=== PATIENT | male | born 1980 ===

== ENCOUNTER 2016-07-05 10:21 | Emergency (ER) | payer OTHER, SELFPAY ==
[2016-07-05] MEDS ORDERED: Sodium Chloride 0.9% 1,000 ML IV STA (10:45)
[2016-07-05] MEDS ORDERED: Iohexol 240 (50 ml) PO ONE (10:45)
[2016-07-05] MEDS ORDERED: HYDROmorphone 0.5 mg/0.5 ml ISec IVP STA ×2 (10:47→16:46)
[2016-07-05 10:53] VITALS: O2SAT 98; BMI 18.6
[2016-07-05] MEDS ORDERED: Iohexol 240 (50 ml) ONE (11:02)
[2016-07-05] MEDS ORDERED: HYDROmorphone 0.5 mg/0.5 ml ISec ONE ×2 (11:02→16:52)
[2016-07-05 11:08] LABS: ALB/GLOB RATIO 0.8 (1.0-2.1); ALKALINE PHOSPHATASE 953 U/L (38-126); ALT/SGPT 253 U/L (21-72); AST/SGOT 250 U/L (17-59); BILIRUBIN,TOTAL 2.6 mg/dl (0.2-1.3); BLOOD UREA NITROGEN 5 mg/dl (9-20); CALCIUM 9.2 mg/dL (8.4-10.2); CARBON DIOXIDE 21 mmol/L (22-30); CHLORIDE 101 mmol/L (98-107); GFR AFRICAN-AMERICAN > 60; GLUCOSE,RANDOM 115 mg/dL (75-110); LIPASE 234 U/L (23-300); SODIUM 135 mmol/l (132-148); TOTAL PROTEIN 9.1 G/DL (6.3-8.2)
[2016-07-05 11:18] LABS: BASO % 0.6 % (0.0-2.0); EOS # 0.1 K/uL (0.0-0.7); EOS % 1.9 % (0.0-4.0); HEMATOCRIT 28.9 % (35.0-51.0); LYMPH # 1.2 K/uL (1.0-4.3); LYMPH % 28.1 % (20.0-40.0); MEAN CELL VOLUME 84.1 fl (80.0-94.0); MEAN CORPUSCULAR HEMOGLOBIN 28.6 pg (27.0-31.0); MEAN PLATELET VOLUME 8.3 fl (7.2-11.7); MONO # 0.2 K/uL (0.0-0.8); MONO % 4.4 % (0.0-10.0); NEUT # 2.7 K/uL (1.8-7.0); RED CELL DISTRIBUTION WIDTH 15.8 % (11.5-14.5); WHITE BLOOD COUNT 4.1 K/uL (4.8-10.8)
[2016-07-05 11:21] LABS: POTASSIUM 2.8 MMOL/L (3.6-5.0)
--- NOTE | 2016-07-05 11:23 | ED PDOC ---
HPI: Abdomen Time Seen by Provider: 07/05/16 10:29 Chief Complaint (Nursing): Abdominal Pain Chief Complaint (Provider): Abdominal Pain History Per: Patient History/Exam Limitations: no limitations Onset/Duration Of Symptoms: Days (x5 days) Current Symptoms Are (Timing): Still Present Additional Complaint(s): 36 y/o male with a past medical history of liver cancer who presents to the emergency department with a complaint of diffused abdominal pain x5 days. Describes as an on and off pain. Denies shortness of breath, chest pain, diarrhea, vomiting, runny nose, cough, or changes with urination or bowel movements. Of note, patient had liver surgery about 1 year ago and a bilirubin drainage input 1 month ago. Currently in chemotherapy (last session was 06/29/2016) and Oxycodon for pain. Surgeon: Dr. Mario Irving MD ([facility]) Oncologist: Dr. Martin Rodgers MD PMD: Dr. Kain Coughlin MD Past Medical History Reviewed: Historical Data, Nursing Documentation, Vital Signs Vital Signs: Last Vital Signs Temp 97.3 F L 07/05/16 10:23 Pulse 93 H 07/05/16 10:23 Resp 16 07/05/16 10:23 BP 105/70 07/05/16 10:23 Pulse Ox 98 07/05/16 17:05 - Medical History PMH: Anemia, Gall Bladder Disease, Malignancy (cholangiocarcinoma) Denies: HIV, Chronic Kidney Disease Other PMH: Liver cancer - Surgical History Surgical History: Appendectomy, Cholecystectomy Other surgeries: Bilirubin drainage and liver surgery - Family History Family History: States: Unknown Family Hx - Social History Current smoker - smoking cessation education provided: No Alcohol: None Drugs: Denies - Home Medications Home Medications: Ambulatory Orders Medication Instructions Recorded oxyCODONE [oxyCODONE Immediate 5 mg PO Q6 PRN 04/19/16 Release Tab] - Allergies Allergies/Adverse Reactions: Allergies Allergy/AdvReac Type Severity Reaction Status Date / Time morphine Allergy SHORTNESS Verified 07/05/16 10:33 OF BREATH Review of Systems ROS Statement: Except As Marked, All Systems Reviewed And Found Negative ENT: Negative for: Nose Discharge Cardiovascular: Negative for: Chest Pain Respiratory: Negative for: Cough, Shortness of Breath Gastrointestinal: Positive for: Abdominal Pain (x5 days). Negative for: Vomiting, Diarrhea Genitourinary Male: Negative for: Dysuria, Frequency, Incontinence, Other ( abnormal bowel movements) Physical Exam - Reviewed Nursing Documentation Reviewed: Yes Vital Signs Reviewed: Yes - Physical Exam Appears: Positive for: Uncomfortable Head Exam: Positive for: ATRAUMATIC, NORMOCEPHALIC Skin: Positive for: Normal Color, Warm, Dry Eye Exam: Positive for: Normal appearance. Negative for: Conjunctival injection ENT: Positive for: Normal ENT Inspection. Negative for: Nasal Congestion, Pharyngeal Erythema Neck: Positive for: Normal, Supple Cardiovascular/Chest: Positive for: Regular Rate, Rhythm. Negative for: Edema, Murmur Respiratory: Positive for: Normal Breath Sounds. Negative for: Accessory Muscle Use, Respiratory Distress Gastrointestinal/Abdominal: Positive for: Soft, Tenderness (Diffused abdominal pain), Hernia (Indetified in the front of the stomach, non-reducible), Other ( Abdominal surgical scar noted) Back: Positive for: Normal Inspection. Negative for: L CVA Tenderness, R CVA Tenderness Extremity: Positive for: Normal ROM. Negative for: Tenderness, Pedal Edema Neurologic/Psych: Positive for: Alert, Oriented - Laboratory Results Result Diagrams: 07/05/16 10:50 07/05/16 10:50 Interpretation Of Abn Labs: 2.8 K - ECG ECG: Positive for: Interpreted By Me, Viewed By Me ECG Rhythm: Positive for: Sinus Rhythm, Nonspecific Changes O2 Sat by Pulse Oximetry: 98 (RA) Pulse Ox Interpretation: Normal - Radiology X-Ray: Read By Radiologist X-Ray Interpretation: No Acute Disease - Progress ED Course And Treament: 1500: S table. Pending surgery eval. 1640: Stable. AAOx3. Pain improved. Spoke with Dr. Soto about CT findings and he saw pt. Wants pt. to be transferred to [facility] where he got his care. Spoke with Mana, for Dr. Irving, surgeon for pt. Pt. will be accepted for transfer to [facility]. Pt. aware and agrees. Pt. to get cipro and flagyl. - Critical Care Total Time (In Min): 30 Documented Critical Care: Time excludes all time spent performint seperately billable procedures Medical Decision Making Medical Decision Making: Time: 10:29 Initial impression: Abdominal Pain Initial plan: --Abd Pelvis PO & IV Contrast CT --COMP Metabolic Panel --Lipase stat --Urine Dip --CBC w/ differential --Dilaudid 1 mg IVP --Sodium Chloride 1,000 ml IV 1,000 mls.hr --Iohexol 50 ml PO --Revaluation Time: 12:19 --Chest X-ray FINDINGS: LUNGS: Minor crowding is seen at the lung bases. No new focal infiltrate. Right Port-A -Cath is stable. PLEURA: No significant pleural effusion identified, no pneumothorax apparent. CARDIOVASCULAR: Normal. OSSEOUS STRUCTURES: No significant abnormalities. VISUALIZED UPPER ABDOMEN: Catheter is seen overlying the right upper abdomen. Surgical clips are seen in the right upper abdomen. OTHER FINDINGS: None. IMPRESSION: Minor bibasilar volume loss. Time: 15:08 --Abdomen/ Pelvis CT FINDINGS: LOWER THORAX: Mild subsegmental atelectasis is seen at the left lung base. No pleural effusion is seen. No pericardial effusion is noted. Minor atelectasis is seen at the right lung base. Visualized distal esophagus is unremarkable. LIVER: There appears to be interval improvement in previously identified multiple hepatic metastatic lesions. There appears to be decreased number and size of lesions. There is a new hepatic infusion catheter identified. Catheter extends to the anterior aspect of the liver and towards the fernando hepatis region. There appears to been resection of the left lobe of the liver with numerous surgical clips adjacent to the medial aspect of the liver. GALLBLADDER AND BILE DUCTS: Gallbladder appears to have been previously removed. Common bile duct is normal in size. Mild residual intrahepatic biliary dilatation is noted. PANCREAS: Pancreas is grossly normal in outline without evidence of mass or peripancreatic inflammatory change. SPLEEN: Unchanged and enlarged. ADRENALS: No adrenal masses. KIDNEYS AND URETERS: Mild bilateral renal pelvocaliceal prominence an ureteral prominence which may be related to a distended urinary bladder. No calculi or significant perinephric change. This represents interval change from prior study. VASCULATURE: Patent abdominal vessels. However IVC and portions of the mesenteric vessels are limited due to timing of contrast bolus. BOWEL: There is abnormal appearance of the right colon when compared to the prior study. There appears to be some colonic wall thickening involving the right colon with moderate residual fecal material identified. The colon is less distended than on prior study. Mild amount of colitis could not be excluded. Suture material seen in the region of the cecum. There is also fecalization and some dilatation of the terminal ileum and some mild thickening in this region. There are new areas of dilated and contrast filled proximal small bowel and mid small bowel. There is however the suggestion of some under opacified and decreased caliber small bowel loops in the right side of the abdomen. Partial small bowel obstruction is suspected. Etiology is more than likely related to adhesions. R some other adjacent anterior thickened small bowel loops without contrast seen in the anterior abdomen. Additional enteritis in this area is not excluded. No appreciable portal venous air or pneumatosis is clearly seen. APPENDIX: Not well appreciated and more than likely removed. PERITONEUM: Mild thickening of the mesenteric in a number of small scattered mesenteric lymph nodes. LYMPH NODES: No new retroperitoneal lymph nodes appreciated. A few small scattered very celiac and fernando hepatis lymph nodes are noted. BLADDER: Distended. REPRODUCTIVE: Unremarkable. BONES: There appear to be a number of new sclerotic lesions in the spine and sacrum from prior study consistent with new areas of bony metastatic disease. No compression fractures noted. A few smaller scattered sclerotic lesions are seen in the hips. OTHER FINDINGS: There appears to be new anterior abdominal wall dehiscence or hernia with some bowel loops extending beneath this area. IMPRESSION: Status post liver lobe resection. Interval placement of a hepatic infusion catheter with decreased liver metastasis. New areas of small bowel dilatation in the right abdomen with a number of on opacified bowel loops appreciated. Findings suggest at least partial small bowel obstruction. Etiology would more than likely be adhesions. A small underlying intussusception in the area of under opacified and opacified bowel loops cannot fully be excluded but is considered less likely. Nonspecific thickening of the right colon suggesting mild colitis. No evidence of free intraperitoneal air. No evidence of portal venous air or pneumatosis. Distended urinary bladder with mild pelvocaliceal dilatation. Progression of bony metastatic disease. Scribe Attestation: Documented by Anne Hodgson, acting as a scribe for Shen Alcala MD. Provider Scribe Attestation: All medical record entries made by the Scribe were at my direction and personally dictated by me. I have reviewed the chart and agree that the record accurately reflects my personal performance of the history, physical exam, medical decision making, and the department course for this patient. I have also personally directed, reviewed, and agree with the discharge instructions and disposition. Disposition - Clinical Impression Clinical Impression: Partial bowel obstruction, Colitis, Abdominal pain, Hypokalemia - Patient ED Disposition Is Patient to be Admitted: Yes Counseled Patient/Family Regarding: Studies Performed, Diagnosis - Disposition Disposition: Other Institution Disposition Time: 16:15 Condition: SERIOUS - POA Present On Arrival: None
[2016-07-05] MEDS ORDERED: Potassium Chloride 10 mEq 100 ML IVPB ONE ×3 (11:56→15:03)
[2016-07-05] MEDS: Potassium CL 10mEq/100ml 100 ML IVPB SCH ×4 (12:03→16:42)
--- NOTE | 2016-07-05 12:20 | RAD ---
HISTORY: pain COMPARISON: 04/19/2016 FINDINGS: LUNGS: Minor crowding is seen at the lung bases. No new focal infiltrate. Right Port-A-Cath is stable. PLEURA: No significant pleural effusion identified, no pneumothorax apparent. CARDIOVASCULAR: Normal. OSSEOUS STRUCTURES: No significant abnormalities. VISUALIZED UPPER ABDOMEN: Catheter is seen overlying the right upper abdomen. Surgical clips are seen in the right upper abdomen. OTHER FINDINGS: None. IMPRESSION: Minor bibasilar volume loss.
[2016-07-05] MEDS ORDERED: Iohexol 300 100 ML IJ ONE (13:42)
--- NOTE | 2016-07-05 15:10 | CT ---
PROCEDURE: CT Abdomen and Pelvis with contrast HISTORY: abd pain COMPARISON: 04/19/2016 TECHNIQUE: Contrast dose: 100 cc Radiation dose: Total exam DLP = 406 mGy-cm. FINDINGS: LOWER THORAX: Mild subsegmental atelectasis is seen at the left lung base. No pleural effusion is seen. No pericardial effusion is noted. Minor atelectasis is seen at the right lung base. Visualized distal esophagus is unremarkable. LIVER: There appears to be interval improvement in previously identified multiple hepatic metastatic lesions. There appears to be decreased number and size of lesions. There is a new hepatic infusion catheter identified. Catheter extends to the anterior aspect of the liver and towards the fernando hepatis region. There appears to been resection of the left lobe of the liver with numerous surgical clips adjacent to the medial aspect of the liver. GALLBLADDER AND BILE DUCTS: Gallbladder appears to have been previously removed. Common bile duct is normal in size. Mild residual intrahepatic biliary dilatation is noted. PANCREAS: Pancreas is grossly normal in outline without evidence of mass or peripancreatic inflammatory change. SPLEEN: Unchanged and enlarged. ADRENALS: No adrenal masses. KIDNEYS AND URETERS: Mild bilateral renal pelvocaliceal prominence an ureteral prominence which may be related to a distended urinary bladder. No calculi or significant perinephric change. This represents interval change from prior study. VASCULATURE: Patent abdominal vessels. However IVC and portions of the mesenteric vessels are limited due to timing of contrast bolus. BOWEL: There is abnormal appearance of the right colon when compared to the prior study. There appears to be some colonic wall thickening involving the right colon with moderate residual fecal material identified. The colon is less distended than on prior study. Mild amount of colitis could not be excluded. Suture material seen in the region of the cecum. There is also fecalization and some dilatation of the terminal ileum and some mild thickening in this region. There are new areas of dilated and contrast filled proximal small bowel and mid small bowel. There is however the suggestion of some under opacified and decreased caliber small bowel loops in the right side of the abdomen. Partial small bowel obstruction is suspected. Etiology is more than likely related to adhesions. R some other adjacent anterior thickened small bowel loops without contrast seen in the anterior abdomen. Additional enteritis in this area is not excluded. No appreciable portal venous air or pneumatosis is clearly seen. APPENDIX: Not well appreciated and more than likely removed. PERITONEUM: Mild thickening of the mesenteric in a number of small scattered mesenteric lymph nodes. LYMPH NODES: No new retroperitoneal lymph nodes appreciated. A few small scattered very celiac and fernando hepatis lymph nodes are noted. BLADDER: Distended. REPRODUCTIVE: Unremarkable. BONES: There appear to be a number of new sclerotic lesions in the spine and sacrum from prior study consistent with new areas of bony metastatic disease. No compression fractures noted. A few smaller scattered sclerotic lesions are seen in the hips. OTHER FINDINGS: There appears to be new anterior abdominal wall dehiscence or hernia with some bowel loops extending beneath this area. IMPRESSION: Status post liver lobe resection. Interval placement of a hepatic infusion catheter with decreased liver metastasis. New areas of small bowel dilatation in the right abdomen with a number of on opacified bowel loops appreciated. Findings suggest at least partial small bowel obstruction. Etiology would more than likely be adhesions. A small underlying intussusception in the area of under opacified and opacified bowel loops cannot fully be excluded but is considered less likely. Nonspecific thickening of the right colon suggesting mild colitis. No evidence of free intraperitoneal air. No evidence of portal venous air or pneumatosis. Distended urinary bladder with mild pelvocaliceal dilatation. Progression of bony metastatic disease.
[2016-07-05] MEDS ORDERED: Ciprofloxacin 400mg/200ml D5W 200 ML IV STA (16:01)
[2016-07-05] MEDS ORDERED: metroNIDAZOLE 500mg/100ml NS 100 ML IV STA (16:01)
[2016-07-05] MEDS ORDERED: Dextrose 5%-0.9% NS 100 ML IV SCH (17:30)
[2016-07-05 19:36] VITALS: BP 105/67; PULSE 87; RESP 18; TEMP 98.3
--- NOTE | 2016-07-05 20:08 | CP.PCM.CON ---
<Anatoliy Rodriguez - Last Filed: 07/05/16 19:54> History of Present Illness - History of Present Illness History of Present Illness: General Surgery Consult 36M presents to ER C/O diffuse abdominal pain increasing x5 days. Pain can be off and on. Currently had received pain meds so pain was controlled. Denies F/C , SOB, N/V/D chest pain, dysuria. His liver surgery ~1 year ago and a bilirubin drain placed 1 month ago. Currently in chemo (last was 06/29/2016). PMH: Cholangiocarcinoma, metastatic. S/P Surgery, receiving chemo at [facility], Anemia PSH: Liver/bile duct resection at [facility], appendectomy SH: All: morphine Meds: See MAR Review of Systems - Review of Systems All systems: reviewed and no additional remarkable complaints except (as per HPI ) Past Patient History - Infectious Disease Hx of Infectious Diseases: None - Tetanus Immunizations Tetanus Immunization: Unknown - Past Medical History & Family History Past Medical History?: Yes - Past Social History Alcohol: None Drugs: Denies - CARDIAC Hx Cardiac Disorders: No - PULMONARY Hx Respiratory Disorders: No - NEUROLOGICAL Hx Neurological Disorder: No - HEENT Hx HEENT Problems: No - RENAL Hx Chronic Kidney Disease: No - ENDOCRINE/METABOLIC Hx Endocrine Disorders: No - HEMATOLOGICAL/ONCOLOGICAL Hx Anemia: Yes Hx Human Immunodeficiency Virus (HIV): No - INTEGUMENTARY Hx Dermatological Problems: No - MUSCULOSKELETAL/RHEUMATOLOGICAL Hx Musculoskeletal Disorders: No Hx Falls: No - GASTROINTESTINAL Hx Gall Bladder Disease: Yes - GENITOURINARY/GYNECOLOGICAL Hx Genitourinary Disorders: No - PSYCHIATRIC Hx Psychophysiologic Disorder: No Hx Substance Use: No - SURGICAL HISTORY Hx Appendectomy: Yes Hx Cholecystectomy: Yes - ANESTHESIA Hx Anesthesia: Yes Hx Anesthesia Reactions: No Meds Allergies/Adverse Reactions: Allergies Allergy/AdvReac Type Severity Reaction Status Date / Time morphine Allergy SHORTNESS Verified 07/05/16 10:33 OF BREATH - Medications Medications: Current Medications Dextrose/Sodium Chloride (Dextrose 5%-0.9% Ns 500 Ml) 100 mls @ 100 mls/hr IV .Q1H [facility] Last Admin: 07/05/16 17:46 Dose: 100 mls/hr Physical Exam - Constitutional Appears: No Acute Distress, Chronically Ill - Head Exam Head Exam: ATRAUMATIC, NORMOCEPHALIC - Eye Exam Eye Exam: EOMI, Scleral icterus - ENT Exam ENT Exam: Mucous Membranes Moist Additional comments: trachea midline - Neck Exam Neck exam: Positive for: Full Rom - Respiratory Exam Respiratory Exam: NORMAL BREATHING PATTERN. absent: Respiratory Distress - Cardiovascular Exam Cardiovascular Exam: RRR, +S1, +S2 - GI/Abdominal Exam GI & Abdominal Exam: Guarding (mild), Soft, Tenderness (generalized). absent: Distended, Firm, Rebound, Rigid - Extremities Exam Extremities exam: Negative for: calf tenderness, pedal edema - Neurological Exam Neurological exam: Alert, Oriented x3 - Psychiatric Exam Psychiatric exam: Normal Affect, Normal Mood - Skin Skin Exam: Dry, Warm Additional comments: jaundice Results - Vital Signs Recent Vital Signs: Last Vital Signs Temp 98.3 F 07/05/16 18:30 Pulse 87 07/05/16 18:30 Resp 18 07/05/16 18:30 BP 105/67 07/05/16 18:30 Pulse Ox 98 07/05/16 18:30 - Labs Result Diagrams: 07/05/16 10:50 07/05/16 10:50 Labs: Laboratory Results - last 24 hr 07/05/16 10:50 WBC 4.1 L RBC 3.44 L Hgb 9.8 L Hct 28.9 L MCV 84.1 D MCH 28.6 MCHC 34.0 RDW 15.8 H Plt Count 177 MPV 8.3 Neut % (Auto) 65.0 Lymph % (Auto) 28.1 [place] % (Auto) 4.4 Eos % (Auto) 1.9 Baso % (Auto) 0.6 Neut # 2.7 Lymph # 1.2 [place] # 0.2 Eos # 0.1 Baso # 0.0 Sodium 135 Potassium 2.8 L Chloride 101 Carbon Dioxide 21 L Anion Gap 16 BUN 5 L Creatinine 0.4 L Est GFR ( Amer) > 60 Est GFR (Non-Af Amer) > 60 Random Glucose 115 H Calcium 9.2 Total Bilirubin 2.6 H AST 250 H ALT 253 H D Alkaline Phosphatase 953 H D Total Protein 9.1 H Albumin 3.9 Globulin 5.2 H Albumin/Globulin Ratio 0.8 L Lipase 234 - Imaging and Cardiology CT scan - abdomen Status: Image reviewed by me, Report reviewed by me Assessment & Plan - Assessment and Plan (Free Text) Assessment: 36M with neutropenic colitis and pSBO likely 2/2 adhesions Plan: Recommend transfer to [facility] for care from his specialists D/W Dr. Jody Rodriguez PGY3 <Reynaldo Vera - Last Filed: 07/05/16 21:40> Meds - Medications Medications: Current Medications Dextrose/Sodium Chloride (Dextrose 5%-0.9% Ns 500 Ml) 100 mls @ 100 mls/hr IV .Q1H [facility] Last Admin: 07/05/16 17:46 Dose: 100 mls/hr Results - Vital Signs Recent Vital Signs: Last Vital Signs Temp 98.3 F 07/05/16 18:30 Pulse 87 07/05/16 18:30 Resp 18 07/05/16 18:30 BP 105/67 07/05/16 18:30 Pulse Ox 98 07/05/16 18:30 - Labs Result Diagrams: 07/05/16 10:50 07/05/16 10:50 Labs: Laboratory Results - last 24 hr 07/05/16 10:50 WBC 4.1 L RBC 3.44 L Hgb 9.8 L Hct 28.9 L MCV 84.1 D MCH 28.6 MCHC 34.0 RDW 15.8 H Plt Count 177 MPV 8.3 Neut % (Auto) 65.0 Lymph % (Auto) 28.1 [place] % (Auto) 4.4 Eos % (Auto) 1.9 Baso % (Auto) 0.6 Neut # 2.7 Lymph # 1.2 [place] # 0.2 Eos # 0.1 Baso # 0.0 Sodium 135 Potassium 2.8 L Chloride 101 Carbon Dioxide 21 L Anion Gap 16 BUN 5 L Creatinine 0.4 L Est GFR ( Amer) > 60 Est GFR (Non-Af Amer) > 60 Random Glucose 115 H Calcium 9.2 Total Bilirubin 2.6 H AST 250 H ALT 253 H D Alkaline Phosphatase 953 H D Total Protein 9.1 H Albumin 3.9 Globulin 5.2 H Albumin/Globulin Ratio 0.8 L Lipase 234 Attending/Attestation - Attestation I have personally seen and examined this patient.: Yes I have fully participated in the care of the patient.: Yes I have reviewed all pertinent clinical information: Yes Notes (Text): 07/05/16 21:39 Pt was seen and examined at bedside on 07/05/16 Agree with above note and assessment Pt with PSBO and Colitis CT scan reviewed NG to LIS, NPO, IVG Transfer pt to [facility] Plan d/w pt in detail Risk and benefit explained in detail
--- NOTE | 2016-07-06 08:07 | CARD ---
APPROVED REPORT EKG Measurement Heart [id number] <Conclusion> Normal sinus rhythm Prolonged QT Abnormal ECG
== END 2016-07-05 21:00 | disposition short-term general hospital (02) ==
LOC: H.ER 10:21
DX: K56.69 Other intestinal obstruction (principal); K52.9 Noninfective gastroenteritis and colitis, unspecified; E87.6 Hypokalemia; C22.1 Intrahepatic bile duct carcinoma; C78.7 Secondary malignant neoplasm of liver and intrahepatic bile duct

== ENCOUNTER 2016-12-11 13:36 | Emergency (ER) | payer MEDICAID, OTHER ==
[2016-12-11 13:37] VITALS: BMI 21.6
[2016-12-11 13:39] VITALS: PULSE 102; RESP 18; TEMP 97.9; O2SAT 100
[2016-12-11] MEDS ORDERED: Iohexol 240 (50 ml) PO ONE (13:56)
[2016-12-11] MEDS ORDERED: Sodium Chloride 0.9% 1,000 ML IV SCH (14:00)
[2016-12-11] MEDS ORDERED: HYDROmorphone 0.5 mg/0.5 ml ISec IVP STA (14:07)
--- NOTE | 2016-12-11 14:29 | RAD ---
HISTORY: routine COMPARISON: Comparison made with prior chest radiograph 07/05/2016. FINDINGS: LUNGS: Poor inspiration with low lung volumes, crowded bronchovascular markings and mild bibasilar atelectasis. No change right IJ MediPort tip in the SVC PLEURA: No significant pleural effusion identified, no pneumothorax apparent. CARDIOVASCULAR: Normal. OSSEOUS STRUCTURES: No significant abnormalities. VISUALIZED UPPER ABDOMEN: Pigtail catheter again seen overlying the right upper abdomen. OTHER FINDINGS: None. IMPRESSION: Poor inspiration with low lung volumes, crowded bronchovascular markings and mild bibasilar atelectasis
--- NOTE | 2016-12-11 14:38 | ED PDOC ---
HPI: Back Time Seen by Provider: 12/11/16 13:36 Chief Complaint (Nursing): Back Pain Chief Complaint (Provider): Back Pain History Per: Patient History/Exam Limitations: no limitations Current Symptoms Are (Timing): Still Present Additional Complaint(s): 36 y/o male with a past medical history of liver cancer who presents to the emergency department with a complaint of abdominal and back pain x2 days. States pain in increasing and took morphine without relief of symptoms at home. Reports last bowel movement was normal without complications. Denies urinary or rectal incontinence, frequency, dysuria, hematuria, vomiting, fever, or chills. Surgeon: Dr. Mario Irving MD ([facility]) Oncologist: Dr. Martin Rodgers MD and DNJ: Dr. Diaz PMD: Dr. Kain Coughlin MD Past Medical History Reviewed: Historical Data, Nursing Documentation, Vital Signs Vital Signs: Last Vital Signs Temp 97.9 F 12/11/16 13:38 Pulse 102 H 12/11/16 13:38 Resp 18 12/11/16 13:38 BP 105/60 12/11/16 13:38 Pulse Ox 100 12/11/16 13:38 - Medical History PMH: Anemia, Gall Bladder Disease, Malignancy (cholangiocarcinoma) Denies: HIV, Chronic Kidney Disease Other PMH: Liver cancer - Surgical History Surgical History: Appendectomy, Cholecystectomy - Family History Family History: States: Unknown Family Hx - Immunization History Hx Tetanus Toxoid Vaccination: No Hx Influenza Vaccination: No Hx Pneumococcal Vaccination: No - Home Medications Home Medications: Ambulatory Orders Medication Instructions Recorded oxyCODONE [oxyCODONE Immediate 5 mg PO Q6 PRN 04/19/16 Release Tab] - Allergies Allergies/Adverse Reactions: Allergies Allergy/AdvReac Type Severity Reaction Status Date / Time morphine Allergy SHORTNESS Verified 07/05/16 10:33 OF BREATH Review of Systems ROS Statement: Except As Marked, All Systems Reviewed And Found Negative Constitutional: Negative for: Fever, Chills Gastrointestinal: Positive for: Abdominal Pain. Negative for: Vomiting Genitourinary Male: Negative for: Dysuria, Frequency, Incontinence (rectal or urinary), Hematuria Musculoskeletal: Positive for: Back Pain Physical Exam - Reviewed Nursing Documentation Reviewed: Yes Vital Signs Reviewed: Yes - Physical Exam Appears: Positive for: Non-toxic, No Acute Distress Head Exam: Positive for: ATRAUMATIC, NORMAL INSPECTION, NORMOCEPHALIC Skin: Positive for: Normal Color, Warm, Dry Neck: Positive for: Normal, Supple Cardiovascular/Chest: Positive for: Regular Rate, Rhythm. Negative for: Murmur Respiratory: Positive for: Normal Breath Sounds. Negative for: Accessory Muscle Use, Respiratory Distress Gastrointestinal/Abdominal: Positive for: Bowel Sounds (Active bowel sounds), Soft (Surgical scar noted in mid abdomen), Tenderness (Tenderness mostly located in LUQ and LLQ region). Negative for: Normal Exam Extremity: Positive for: Normal ROM. Negative for: Pedal Edema Neurologic/Psych: Positive for: Alert, Oriented (x3) - Laboratory Results Result Diagrams: 12/11/16 15:16 12/11/16 15:16 - ECG ECG Rhythm: Positive for: Sinus Rhythm (NSR 76BPM; NO ECTOPY NO ACUTE CHANGES) O2 Sat by Pulse Oximetry: 100 (RA) Pulse Ox Interpretation: Normal - Progress ED Course And Treament: CT ABD/PELVIS IMPRESSION: Interval worsening of liver metastasis since the previous exam. Moderate small-bowel wall thickening seen at the upper abdomen. Findings suspicious for enteritis. The large bowel is not distended therefore cannot be evaluated. Interval appearance of destructive bony lesion at the left sacrum likely represent metastasis since the previous study. DILAUDID 0.5 MG IV X 1 DOSE ZOFRAN 4 MG IV X 1 DOSE NS 1 LITER 500 ML PER HOUR CIPRO 500MG IV X 1 DOSE FLAGLY 500 MG I VX 1 DOSE PREVIOUS BILIRUBIN NOTED 5.9. TODAY'S VALUE OF 2.9. Medical Decision Making Medical Decision Making: Time: 13:54 Initial impression: Back pain and abdominal pain Initial plan: --VBG --Abd Pelvis PO & IV Contrast CT --EKG --Alcohol Serum --CMP --Lipase --CBC w/ diff --Dilaudid 0.5 mg IVP --Iohexol 50 ml PO --Sodium Chloride 1L IV 500 mls/hr --Zofran 4 mg IVP --urine Culture --Urinalysis --Reevaluation --Old charts reviewed in course of treatment on 07-05-2016, pt noted to have diagnosis of Partial bowel obstruction, Colitis, Abdominal pain, & Hypokalemia. Time: 14:27 Chest x-ray FINDINGS: LUNGS: Poor inspiration with low lung volumes, crowded bronchovascular markings and mild bibasilar atelectasis. No change right IJ MediPort tip in the SVC PLEURA: No significant pleural effusion identified, no pneumothorax apparent. CARDIOVASCULAR: Normal. OSSEOUS STRUCTURES: No significant abnormalities. VISUALIZED UPPER ABDOMEN: Pigtail catheter again seen overlying the right upper abdomen. OTHER FINDINGS: None. IMPRESSION: Poor inspiration with low lung volumes, crowded bronchovascular markings and mild bibasilar atelectasis Scribe Attestation: Documented by Anne Hodgson, acting as a scribe for Jessee dow PA-C. Provider Scribe Attestation: All medical record entries made by the Scribe were at my direction and personally dictated by me. I have reviewed the chart and agree that the record accurately reflects my personal performance of the history, physical exam, medical decision making, and the department course for this patient. I have also personally directed, reviewed, and agree with the discharge instructions and disposition. Disposition - Clinical Impression Clinical Impression: Enteritis - Patient ED Disposition Is Patient to be Admitted: Transfer of Care - Disposition Disposition: Transfer of Care Disposition Time: 20:05 Condition: STABLE Forms: [employer] (Wallisian) Patient Signed Over To: Santa Taylor Handoff Comments: CIPRO/FLAGYL/RE-EVAL
[2016-12-11] MEDS ORDERED: Iohexol 240 (50 ml) ONE (14:56)
[2016-12-11] MEDS ORDERED: HYDROmorphone 0.5 mg/0.5 ml ISec ONE (14:57)
[2016-12-11 15:17] LABS: VENOUS BLOOD GAS BASE EXCESS 3.9 mmol/L (0.0-2.0); VENOUS BLOOD GAS PCO2 42 mmHg (40-60); VENOUS BLOOD PH 7.44 (7.32-7.43)
[2016-12-11 15:20] LABS: RBC URINE 1 /hpf (0-3); URINE BACTERIA RARE (<OCC); URINE BILIRUBIN NEGATIVE (NEGATIVE); URINE BLOOD NEGATIVE (NEGATIVE); URINE COLOR YELLOW (YELLOW); URINE GLUCOSE (UA) NEG (Normal); URINE KETONE NEGATIVE (NEGATIVE); URINE LEUKOCYTE ESTERASE NEG Leu/uL (Negative); URINE PROTEIN NEGATIVE (NEGATIVE); WBC URINE 2 /hpf (0-5)
[2016-12-11 15:23] LABS: BASO % 0.8 % (0.0-2.0); EOS # 0.1 K/uL (0.0-0.7); EOS % 2.6 % (0.0-4.0); HEMATOCRIT 32.6 % (35.0-51.0); LYMPH # 1.1 K/uL (1.0-4.3); LYMPH % 22.7 % (20.0-40.0); MEAN CELL VOLUME 85.8 fl (80.0-94.0); MEAN CORPUSCULAR HGB CONC 33.7 g/dL (33.0-37.0); MEAN PLATELET VOLUME 9.1 fl (7.2-11.7); MONO # 0.5 K/uL (0.0-0.8); MONO % 10.9 % (0.0-10.0); NEUT # 3.2 K/uL (1.8-7.0); NRBC % 0.1 % (0.0-0.0); RED CELL DISTRIBUTION WIDTH 14.1 % (11.5-14.5)
[2016-12-11 15:33] LABS: ALCOHOL SERUM < 10 mg/dl (0-10); ALKALINE PHOSPHATASE 562 U/L (38-126); ALT/SGPT 133 U/L (21-72); AST/SGOT 131 U/L (17-59); BILIRUBIN,TOTAL 2.9 mg/dl (0.2-1.3); BLOOD UREA NITROGEN 5 mg/dl (9-20); CALCIUM 9.2 mg/dL (8.4-10.2); CARBON DIOXIDE 25 mmol/L (22-30); CHLORIDE 104 mmol/L (98-107); GFR AFRICAN-AMERICAN > 60; GLUCOSE,RANDOM 103 mg/dL (75-110); LIPASE 312 U/L (23-300); SODIUM 140 mmol/l (132-148); TOTAL PROTEIN 8.2 G/DL (6.3-8.2)
[2016-12-11 15:39] LABS: POTASSIUM 3.1 MMOL/L (3.6-5.0)
[2016-12-11] MEDS ORDERED: Sodium Chloride 0.9% 50 ML IV ONE (16:41)
[2016-12-11] MEDS ORDERED: Iohexol 300 100 ML IJ ONE (16:41)
[2016-12-11] MEDS ORDERED: Potassium Chloride 20 mEq ER Tab PO STA (16:43)
[2016-12-11] MEDS ORDERED: Potassium Chloride 20 mEq ER Tab PO ONE ×2 (18:09→18:14)
--- NOTE | 2016-12-11 18:56 | CT ---
PROCEDURE: CT Abdomen and Pelvis with contrast HISTORY: abdominal pain h/o metastatic liver ca COMPARISON: Comparison is made to the previous study dated 07/05/2016 TECHNIQUE: Contrast dose: 90 mL of Omnipaque 300. Axial and reformatted coronal and sagittal CT images of the abdomen and pelvis were obtained after IV and oral contrast administration. Radiation dose: Total exam DLP = 453.82 mGy-cm. This CT exam was performed using one or more of the following dose reduction techniques: Automated exposure control, adjustment of the mA and/or kV according to patient size, and/or use of iterative reconstruction technique. FINDINGS: LOWER THORAX: There are new linear opacity seen at the lung bases may represent atelectasis or scar tissue. LIVER: Again seen are multiple mass lesions in the liver consistent with liver metastasis. The patient is status post left liver lobe resection. Again seen is infusion catheter extending to the fernando hepatis region. Multiple surgical clips seen at the fernando hepatis region and central portion of the right liver lobe. GALLBLADDER AND BILE DUCTS: The gallbladder is not visualized likely due to prior cholecystectomy. PANCREAS: Unremarkable. No gross lesion or ductal dilatation. SPLEEN: The spleen is txeigj-[id number] enlarged. ADRENALS: Unremarkable. No mass. KIDNEYS AND URETERS: Unremarkable. No hydronephrosis. No solid mass. VASCULATURE: There is possible mild stenosis at the IVC at the level of the liver. . No aortic aneurysm. BOWEL: Moderately dilated bowel loop is again seen at the mid to upper abdomen. There is moderate wall thickening seen in bowel loops seen at the mid to upper abdomen also. The possibility of enteritis should be considered. No evidence of high-grade bowel obstruction. The large bowel is not distended therefore cannot be evaluated. No evidence of pneumatosis. APPENDIX: The appendix is not visualized. PERITONEUM: Trace free fluid seen in the abdomen. No evidence of free air. LYMPH NODES: Mildly enlarged upper abdomen and fernando hepatis lymph nodes are again noted. BLADDER: Unremarkable. REPRODUCTIVE: Prostate is mildly enlarged. BONES: Interval appearance of destructive bony lesion at the left sacral trev since the previous exam likely represent metastasis. OTHER FINDINGS: None. IMPRESSION: Interval worsening of liver metastasis since the previous exam. Moderate small-bowel wall thickening seen at the upper abdomen. Findings suspicious for enteritis. The large bowel is not distended therefore cannot be evaluated. Interval appearance of destructive bony lesion at the left sacrum likely represent metastasis since the previous study.
[2016-12-11] MEDS ORDERED: Ciprofloxacin 400mg/200ml D5W 400 MG/200 ML BAG IVPB STA (19:12)
[2016-12-11] MEDS ORDERED: metroNIDAZOLE 500mg/100ml NS 100 ML IVPB STA (19:12)
[2016-12-11] MEDS ORDERED: Ciprofloxacin 400mg/200ml D5W 400 MG/200 ML BAG IVPB ONE (19:58)
--- NOTE | 2016-12-11 20:30 | ED PDOC ---
- Laboratory Results Result Diagrams: 12/11/16 15:16 12/11/16 15:16 - ECG O2 Sat by Pulse Oximetry: 100 (RA) Pulse Ox Interpretation: Normal Medical Decision Making Medical Decision Making: Case was signed out to science writer from [employer] pending PO challenge and re- evaluation. US: FINDINGS: Liver: Hepatic texture is mildly heterogeneous. There are small shadowing foci in the right lobe of the liver. There is a 2.2 x 2.3 x 2.3 cm mass in the anterior right lobe of the liver. There is a 2.1 x 1.9 x 2.8 cm mass in the posterior right lobe of the liver. Left lobe of the liver is absent. Gallbladder: Gallbladder surgically absent. Common bile duct: Common bile duct measures 3 mm in diameter Pancreas: Pancreas is obscured by bowel gas. Right kidney: Right kidney is unremarkable. Aorta: Aorta and inferior vena cava are obscured by now. IMPRESSION: Heterogeneous right lobe of the liver with small nodules consistent with metastases seen on CT; absence of the left lobe of the liver and gallbladder; pancreas, aorta and inferior vena cava obscured by bowel gas. Patient aware of diagnostic testing results. Patient is feeling better. He is now tolerating water orally with no emesis noted. Pharmacy called to state that Flagyl IV is on back order, oral dose ordered instead. Rx given for cipro, flagyl and tramadol for pain. Patient given dietary instructions and was advised to follow-up with his primary doctor in [place] on Wednesday. 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 Drink plenty of fluids and follow bland diet. Follow-up with primary care doctor on Wednesday. Prescriptions: Ciprofloxacin/Ciprofloxa HCl [Ciprofloxacin] 500 mg PO BID #14 tab Metronidazole [Flagyl] 500 mg PO TID #21 tab traMADol [Ultram] 50 mg PO TID PRN #15 tab PRN Reason: Pain, Moderate (4-7) Instructions: Enteritis (ED) Forms: [employer] (French) Print Language: CITIZEN OF [place]
--- NOTE | 2016-12-11 21:30 | US ---
EXAM: US Abdomen Limited, Right Upper Quadrant EXAM DATE/TIME: 12/11/2016 7:11 PM CLINICAL HISTORY: 36 years old, male; Pain and abnormal findings; Abnormal lab test; Other: Inc bilirubin; Abdominal pain; Generalized; Prior surgery; Surgery date: 6+ months; Surgery type: S/P left liver lobe resection; multiple hepatic metastases seen on CT; Additional info: Elevated bilirubin/abdominal pain TECHNIQUE: Real-time ultrasound of the right upper quadrant with image documentation. COMPARISON: CT - ABD PELVIS IV CONTRAST ONLY 12/11/16 not available, correlation is made with a report dated 12/11/16 FINDINGS: Liver: Hepatic texture is mildly heterogeneous. There are small shadowing foci in the right lobe of the liver. There is a 2.2 x 2.3 x 2.3 cm mass in the anterior right lobe of the liver. There is a 2.1 x 1.9 x 2.8 cm mass in the posterior right lobe of the liver. Left lobe of the liver is absent. Gallbladder: Gallbladder surgically absent. Common bile duct: Common bile duct measures 3 mm in diameter Pancreas: Pancreas is obscured by bowel gas. Right kidney: Right kidney is unremarkable. Aorta: Aorta and inferior vena cava are obscured by now. IMPRESSION: Heterogeneous right lobe of the liver with small nodules consistent with metastases seen on CT; absence of the left lobe of the liver and gallbladder; pancreas, aorta and inferior vena cava obscured by bowel gas
[2016-12-11 22:28] VITALS: BP 98/61
--- NOTE | 2016-12-14 11:13 | CARD ---
APPROVED REPORT EKG Measurement Heart [id number] <Conclusion> Normal sinus rhythm Possible Left atrial enlargement Borderline ECG
== END 2016-12-11 22:25 | disposition home or self-care (01) ==
LOC: H.ER 13:36
DX: K52.9 Noninfective gastroenteritis and colitis, unspecified (principal); C22.1 Intrahepatic bile duct carcinoma; C78.7 Secondary malignant neoplasm of liver and intrahepatic bile duct; E87.6 Hypokalemia
CPT/HCPCS: 71010; 74177; 76705; 80053; 81003; 82803; 83690; 85025; 87086; 96360; 96361; 96374; 99283; G0480; J0744; J1170; J1885; J2405; J7040; Q9966; Q9967

== ENCOUNTER 2016-12-14 11:29 | Emergency (ER) | payer OTHER ==
[2016-12-14 11:45] VITALS: BMI 25.4
[2016-12-14 11:49] VITALS: BP 108/65; PULSE 92; RESP 18; TEMP 98.2; O2SAT 96
--- NOTE | 2016-12-14 13:05 | ED PDOC ---
HPI: Back Time Seen by Provider: 12/14/16 11:58 Chief Complaint (Nursing): Back Pain Chief Complaint (Provider): Back pain History Per: Patient History/Exam Limitations: no limitations Onset/Duration Of Symptoms: Days (chronic) Current Symptoms Are (Timing): Still Present Additional Complaint(s): Tunde Montiel is a 36 year old male with a past medical history of liver cancer presents to the ED for an evaluation of chronic left sided hip pain. The patient was seen 2 days prior to arrival for back pain and abdominal pain and had a CT scan done. The patient states he has had chronic abdominal pain due to his liver cancer, for which he takes Morphine at home. The patient took morphine today for his pain, without relief stating the pain is still severe. His oncologist is Dr. Irving at [facility] in [place], [place]. His last visit to Dr. Irving was on November 19, 2016. The patient also reports he finished chemotherapy in October 2016. He denies vomiting, fever, or any other medical problems. PMD: TBD Past Medical History Reviewed: Historical Data, Nursing Documentation, Vital Signs Vital Signs: Last Vital Signs Temp 98.2 F 12/14/16 11:45 Pulse 92 H 12/14/16 11:45 Resp 18 12/14/16 11:45 BP 108/65 12/14/16 11:45 Pulse Ox 96 12/14/16 11:45 - Medical History PMH: Anemia, Gall Bladder Disease, Malignancy (cholangiocarcinoma) Denies: HIV, Chronic Kidney Disease - Surgical History Surgical History: Appendectomy, Cholecystectomy - Family History Family History: States: Unknown Family Hx - Social History Current smoker - smoking cessation education provided: No Ex-Smoker (has not smoked in the last 12 months): Yes Alcohol: Other Drugs: Denies - Immunization History Hx Tetanus Toxoid Vaccination: No Hx Influenza Vaccination: No Hx Pneumococcal Vaccination: No - Home Medications Home Medications: Ambulatory Orders Medication Instructions Recorded oxyCODONE [oxyCODONE Immediate 5 mg PO Q6 PRN 04/19/16 Release Tab] Ciprofloxacin/Ciprofloxa HCl 500 mg PO BID #14 tab 12/11/16 [Ciprofloxacin] Metronidazole [Flagyl] 500 mg PO TID #21 tab 12/11/16 traMADol [Ultram] 50 mg PO TID PRN #15 tab 12/11/16 - Allergies Allergies/Adverse Reactions: Allergies Allergy/AdvReac Type Severity Reaction Status Date / Time morphine Allergy SHORTNESS Verified 07/05/16 10:33 OF BREATH Review of Systems ROS Statement: Except As Marked, All Systems Reviewed And Found Negative Constitutional: Negative for: Fever Gastrointestinal: Negative for: Vomiting Musculoskeletal: Positive for: Back Pain (left sided hip pain ) Physical Exam - Reviewed Nursing Documentation Reviewed: Yes Vital Signs Reviewed: Yes - Physical Exam Appears: Positive for: Well, Non-toxic, No Acute Distress Head Exam: Positive for: ATRAUMATIC, NORMAL INSPECTION, NORMOCEPHALIC Skin: Positive for: Normal Color, Warm, Dry Eye Exam: Positive for: EOMI, Normal appearance, PERRL ENT: Positive for: Normal ENT Inspection Neck: Positive for: Normal, Painless ROM, Supple Cardiovascular/Chest: Positive for: Regular Rate, Rhythm, Chest Non Tender Respiratory: Positive for: Normal Breath Sounds. Negative for: Respiratory Distress Gastrointestinal/Abdominal: Positive for: Normal Exam, Bowel Sounds, Soft. Negative for: Tenderness Back: Positive for: Normal Inspection, Other (tenderness to palpation to left hip/sacrum). Negative for: L CVA Tenderness, R CVA Tenderness, Vertebral Tenderness Extremity: Positive for: Normal ROM Neurologic/Psych: Positive for: Alert, Oriented (x3). Negative for: Motor/ Sensory Deficits - Laboratory Results Result Diagrams: 12/14/16 13:20 12/14/16 13:20 - ECG O2 Sat by Pulse Oximetry: 96 (RA) Pulse Ox Interpretation: Normal - Progress Re-evaluation Time: 15:26 Condition: Re-examined, Improved Medical Decision Making Medical Decision Making: Time: 11:58 Impression: Could be bone pain due to metastatic cancer (bone mets in sacrum) Plan: Alcohol Serum * CMP * CBC (With differential) * Morphine 4 mg IVP * Hip 1 View W/ Pelvis LT [RAD] * Reevaluation Reviewed Abdominal CT from previous visit and results are following: FINDINGS: LOWER THORAX: There are new linear opacity seen at the lung bases may represent atelectasis or scar tissue. LIVER: Again seen are multiple mass lesions in the liver consistent with liver metastasis. The patient is status post left liver lobe resection. Again seen is infusion catheter extending to the fernando hepatis region. Multiple surgical clips seen at the fernando hepatis region and central portion of the right liver lobe. GALLBLADDER AND BILE DUCTS: The gallbladder is not visualized likely due to prior cholecystectomy. PANCREAS: Unremarkable. No gross lesion or ductal dilatation. SPLEEN: The spleen is fhlpjp-[id number]-chimgryedm enlarged. ADRENALS: Unremarkable. No mass. KIDNEYS AND URETERS: Unremarkable. No hydronephrosis. No solid mass. VASCULATURE: There is possible mild stenosis at the IVC at the level of the liver. . No aortic aneurysm. BOWEL: Moderately dilated bowel loop is again seen at the mid to upper abdomen. There is moderate wall thickening seen in bowel loops seen at the mid to upper abdomen also. The possibility of enteritis should be considered. No evidence of high-grade bowel obstruction. The large bowel is not distended therefore cannot be evaluated. No evidence of pneumatosis. APPENDIX: The appendix is not visualized. PERITONEUM: Trace free fluid seen in the abdomen. No evidence of free air. LYMPH NODES: Mildly enlarged upper abdomen and fernando hepatis lymph nodes are again noted. BLADDER: Unremarkable. REPRODUCTIVE: Prostate is mildly enlarged. BONES: Interval appearance of destructive bony lesion at the left sacral trev since the previous exam likely represent metastasis. OTHER FINDINGS: None. IMPRESSION: Interval worsening of liver metastasis since the previous exam. Moderate small-bowel wall thickening seen at the upper abdomen. Findings suspicious for enteritis. The large bowel is not distended therefore cannot be evaluated. Interval appearance of destructive bony lesion at the left sacrum likely represent metastasis since the previous study. CT shows likely metastasis in sacral bone Treatment: pain control and follow up with oncologist. Scribe Attestation: Documented by Serene Santos, acting as a scribe for Jazzy Valentino MD. Provider Scribe Attestation: All medical record entries made by the Scribe were at my direction and personally dictated by me. I have reviewed the chart and agree that the record accurately reflects my personal performance of the history, physical exam, medical decision making, and the department course for this patient. I have also personally directed, reviewed, and agree with the discharge instructions and disposition. 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 Instructions: Bone Metastasis (ED)
[2016-12-14] MEDS ORDERED: HYDROmorphone 0.5 mg/0.5 ml ISec ONE ×2 (13:11→15:29)
[2016-12-14] MEDS ORDERED: HYDROmorphone 0.5 mg/0.5 ml ISec IVP STA (13:21)
[2016-12-14 13:26] LABS: BASO % 0.8 % (0.0-2.0); EOS % 0.9 % (0.0-4.0); HEMATOCRIT 32.6 % (35.0-51.0); LYMPH # 0.8 K/uL (1.0-4.3); LYMPH % 17.5 % (20.0-40.0); MEAN CORPUSCULAR HEMOGLOBIN 28.2 pg (27.0-31.0); MEAN CORPUSCULAR HGB CONC 32.7 g/dL (33.0-37.0); MONO # 0.2 K/uL (0.0-0.8); NEUT # 3.4 K/uL (1.8-7.0); NEUT % 75.8 % (50.0-75.0); NRBC % 0.1 % (0.0-0.0); RED CELL DISTRIBUTION WIDTH 14.7 % (11.5-14.5); WHITE BLOOD COUNT 4.5 K/uL (4.8-10.8)
[2016-12-14 13:36] LABS: ALB/GLOB RATIO 0.9 (1.0-2.1); ALCOHOL SERUM < 10 mg/dl (0-10); ALKALINE PHOSPHATASE 632 U/L (38-126); ALT/SGPT 116 U/L (21-72); AST/SGOT 130 U/L (17-59); BILIRUBIN,TOTAL 2.7 mg/dl (0.2-1.3); BLOOD UREA NITROGEN 5 mg/dl (9-20); CALCIUM 9.3 mg/dL (8.4-10.2); CARBON DIOXIDE 23 mmol/L (22-30); CHLORIDE 106 mmol/L (98-107); GFR AFRICAN-AMERICAN > 60; GLUCOSE,RANDOM 95 mg/dL (75-110); POTASSIUM 3.4 MMOL/L (3.6-5.0); SODIUM 141 mmol/l (132-148); TOTAL PROTEIN 8.3 G/DL (6.3-8.2)
--- NOTE | 2016-12-14 17:08 | RAD ---
PROCEDURE: Left Hip X-ray Radiographs. HISTORY: left hip pain COMPARISON: None. FINDINGS: BONES: Small bone island is seen cephalad to the acetabulum left hip. No fracture. Incidental note is made of a small nonaggressive appearing hyper intra appear density at the right femoral intertrochanteric space which is stable compared prior and pelvis CT 01/02/2016. JOINTS: Degenerate sclerosis appreciate the weight-bearing portion of the acetabulum. No gross dislocation or subluxation. . SOFT TISSUES: Normal. OTHER FINDINGS: None. IMPRESSION: Limited degenerative joint change left hip joint. No fracture appreciated acutely.
== END 2016-12-14 16:27 | disposition home or self-care (01) ==
LOC: H.ER 11:29
DX: C78.7 Secondary malignant neoplasm of liver and intrahepatic bile duct (principal); C79.51 Secondary malignant neoplasm of bone; G89.29 Other chronic pain
CPT/HCPCS: 73501; 80053; 80320; 85025; 96374; 96376; 99282; J1170

== ENCOUNTER 2016-12-20 00:47 | Emergency (ER) | payer MEDICAID, OTHER ==
[2016-12-20 01:00] VITALS: BMI 21.6
[2016-12-20 01:04] VITALS: BP 95/56; PULSE 95; RESP 16; TEMP 98.2; O2SAT 98
[2016-12-20] MEDS ORDERED: Sodium Chloride 0.9% 1,000 ML IV STA ×2 (02:02→03:11)
--- NOTE | 2016-12-20 02:02 | ED PDOC ---
HPI: General Adult Time Seen by Provider: 12/20/16 01:00 Chief Complaint (Nursing): Hip Pain History Per: Patient, [employer] (Bren kenny (Albanian)) Additional Complaint(s): Pt. states since 10/21/2016 he's had atraumatic L hip pain. States that symptoms began after he had his last chemo for his liver CA. Also states that he was seen here on 12/14/2016 for abdominal pain and was found to have metastasis on his L sacrum. Pt. states he did contact his oncology surgeon Dr. Irving from [facility] and he gave him a copy of CT that showed the metastasis and a f/u appointment is on 12/31/2016. He has been taking Morphine at home without relief. Also states that yesterday he developed atraumatic L sided non- radiating chest pain which lasted for 2 hours and resolved spontaneously. Denies calf pain, fever, abdominal pain, hx of DVT/PE, trauma, numbness, tingling. Past Medical History Reviewed: Historical Data, Nursing Documentation, Vital Signs Vital Signs: Last Vital Signs Temp 98.2 F 12/20/16 01:00 Pulse 95 H 12/20/16 01:00 Resp 16 12/20/16 01:00 BP 95/56 L 12/20/16 01:00 Pulse Ox 98 12/20/16 02:13 - Medical History PMH: Anemia, Gall Bladder Disease, Malignancy (cholangiocarcinoma) Denies: HIV, Chronic Kidney Disease - Surgical History Surgical History: Appendectomy, Cholecystectomy - Family History Family History: States: No Known Family Hx - Immunization History Hx Tetanus Toxoid Vaccination: No Hx Influenza Vaccination: No Hx Pneumococcal Vaccination: No - Home Medications Home Medications: Ambulatory Orders Medication Instructions Recorded oxyCODONE [oxyCODONE Immediate 5 mg PO Q6 PRN 04/19/16 Release Tab] Ciprofloxacin/Ciprofloxa HCl 500 mg PO BID #14 tab 12/11/16 [Ciprofloxacin] Metronidazole [Flagyl] 500 mg PO TID #21 tab 12/11/16 traMADol [Ultram] 50 mg PO TID PRN #15 tab 12/11/16 Azithromycin [Zithromax] 250 mg PO DAILY #6 tab 12/20/16 - Allergies Allergies/Adverse Reactions: Allergies Allergy/AdvReac Type Severity Reaction Status Date / Time morphine Allergy SHORTNESS Verified 07/05/16 10:33 OF BREATH Review of Systems ROS Statement: Except As Marked, All Systems Reviewed And Found Negative Physical Exam - Reviewed Nursing Documentation Reviewed: Yes Vital Signs Reviewed: Yes - Physical Exam Appears: Positive for: Well, Non-toxic, No Acute Distress Head Exam: Positive for: ATRAUMATIC, NORMAL INSPECTION, NORMOCEPHALIC Skin: Positive for: Normal Color, Warm. Negative for: Rash Eye Exam: Positive for: EOMI, Normal appearance, PERRL ENT: Positive for: Normal ENT Inspection Neck: Positive for: Normal, Painless ROM Cardiovascular/Chest: Positive for: Regular Rate, Rhythm Respiratory: Positive for: CNT, Normal Breath Sounds Gastrointestinal/Abdominal: Positive for: Normal Exam, Bowel Sounds, Soft, Other (RUQ drain noted; large surgical scar noted). Negative for: Tenderness Back: Positive for: Normal Inspection Extremity: Positive for: Normal ROM, Other (L posterior hip tenderness without deformity) Neurologic/Psych: Positive for: Alert, Oriented - Laboratory Results Result Diagrams: 12/20/16 02:21 12/20/16 02:21 - ECG O2 Sat by Pulse Oximetry: 98 - Radiology X-Ray: Interpreted by Me (CXR) X-Ray Interpretation: No Acute Disease - Progress ED Course And Treament: Labs ordered. CTA chest ordered. Dilaudid 1mg IV ordered. CTA chest r/o PE: No pulmonary embolism. Mild bibasilar consolidation. On re-evaluation, pt. reports improvement in pain. Denies cough, chest pain, fever. Pt. will be prescribed Z-pack. Pt. instructed to f/u with Dr. Irving WITHOUT FAIL. Disposition - Clinical Impression Clinical Impression: Bone metastasis - Patient ED Disposition Is Patient to be Admitted: No - Disposition Referrals: [facility] [Outside] Disposition: Routine/Home Disposition Time: 05:24 Condition: IMPROVED Prescriptions: Azithromycin [Zithromax] 250 mg PO DAILY #6 tab Instructions: Bone Metastasis (ED) Forms: [employer] (Guinean) Print Language: LEBANESE
[2016-12-20 02:26] LABS: BASO % 0.9 % (0.0-2.0); EOS # 0.1 K/uL (0.0-0.7); EOS % 2.4 % (0.0-4.0); HEMATOCRIT 30.8 % (35.0-51.0); LYMPH # 1.1 K/uL (1.0-4.3); LYMPH % 27.5 % (20.0-40.0); MEAN CELL VOLUME 85.1 fl (80.0-94.0); MEAN CORPUSCULAR HEMOGLOBIN 27.8 pg (27.0-31.0); MEAN CORPUSCULAR HGB CONC 32.7 g/dL (33.0-37.0); MEAN PLATELET VOLUME 9.1 fl (7.2-11.7); MONO # 0.3 K/uL (0.0-0.8); MONO % 8.7 % (0.0-10.0); NEUT # 2.3 K/uL (1.8-7.0); NEUT % 60.5 % (50.0-75.0); RED CELL DISTRIBUTION WIDTH 14.2 % (11.5-14.5); WHITE BLOOD COUNT 3.8 K/uL (4.8-10.8)
[2016-12-20 03:26] LABS: BLOOD UREA NITROGEN 4 mg/dl (9-20); GLUCOSE,RANDOM 99 mg/dL (75-110)
[2016-12-20 03:27] LABS: ALB/GLOB RATIO 0.8 (1.0-2.1); BILIRUBIN,TOTAL 3.5 mg/dl (0.2-1.3); CALCIUM 9.1 mg/dL (8.4-10.2); CARBON DIOXIDE 23 mmol/L (22-30); CHLORIDE 107 mmol/L (98-107); GFR AFRICAN-AMERICAN > 60; POTASSIUM 3.1 MMOL/L (3.6-5.0); SODIUM 139 mmol/l (132-148); TOTAL PROTEIN 8.2 G/DL (6.3-8.2)
[2016-12-20 03:28] LABS: ALKALINE PHOSPHATASE 638 U/L (38-126); ALT/SGPT 141 U/L (21-72); AST/SGOT 183 U/L (17-59)
[2016-12-20] MEDS ORDERED: Potassium Chloride 20 mEq ER Tab PO STA (03:33)
[2016-12-20] MEDS ORDERED: Sodium Chloride 0.9% 50 ML IV ONE (04:08)
[2016-12-20] MEDS ORDERED: Iodixanol 320 MG/ML 100 ML BOTTLE IV ONE (04:08)
[2016-12-20 04:57] LABS: RBC URINE 3 /hpf (0-3); URINE BACTERIA OCC (<OCC); URINE BILIRUBIN NEGATIVE (NEGATIVE); URINE BLOOD NEGATIVE (NEGATIVE); URINE COLOR YELLOW (YELLOW); URINE GLUCOSE (UA) NEG (Normal); URINE KETONE NEGATIVE (NEGATIVE); URINE LEUKOCYTE ESTERASE NEG Leu/uL (Negative); URINE PROTEIN NEGATIVE (NEGATIVE); URINE UROBILINOGEN 0.2-1.0 mg/dL (0.2-1.0); WBC URINE 1 /hpf (0-5)
--- NOTE | 2016-12-20 10:20 | RAD ---
HISTORY: chest pain COMPARISON: Comparison chest 12/11/2016. Correlation also made with subsequent CTA of the chest AP 12/20/2016 at 0435 hours. FINDINGS: LUNGS: Mild bibasilar atelectasis and or scarring. Right IJ MediPort with tip in the SVC. PLEURA: No significant pleural effusion identified, no pneumothorax apparent. CARDIOVASCULAR: Normal. OSSEOUS STRUCTURES: Osseous structures so far as can be seen appear grossly intact. VISUALIZED UPPER ABDOMEN: Re- demonstrated is in situ pigtail catheter which overlies right upper quadrant of the abdomen. . Multiple metallic surgical clips right upper quadrant of the abdomen surrounding the pigtail chest tube catheter OTHER FINDINGS: None. IMPRESSION: Mild bibasilar atelectasis and or scarring. In situ pigtail chest tube catheter.
--- NOTE | 2016-12-20 11:27 | CARD ---
APPROVED REPORT EKG Measurement Heart [id number] <Conclusion> Normal sinus rhythm Normal ECG
--- NOTE | 2016-12-20 13:11 | CT ---
PROCEDURE: CT Chest with contrast (Pulmonary Angiogram) HISTORY: L sided chest pain COMPARISON: None available. TECHNIQUE: Axial computed tomography images were obtained of the chest in the pulmonary arterial phase of enhancement. Coronal and sagittal reformatted images were created and reviewed. . Note that the examination is somewhat limited due to equal enhancement of the pulmonary arteries and arterial circulation. Intravenous contrast dose: 90 cc Visipaque 320 contrast material. Is in Radiation dose: Total exam DLP = 368.16 mGy-cm. This CT exam was performed using one or more of the following dose reduction techniques: Automated exposure control, adjustment of the mA and/or kV according to patient size, and/or use of iterative reconstruction technique. FINDINGS: PULMONARY ARTERIES: The visualized portions of the pulmonary trunk, right and left main, lobar, segmental and proximal subsegmental branches of the pulmonary arteries are well opacified with no definitive filling defects seen to suggest acute pulmonary embolus. Pulmonary trunk measures approximately 2.64 cm. In situ right-sided IJ MediPort with tip in the SVC. AORTA: Ascending thoracic aorta measures approximately 2.74 cm and descending thoracic aorta measures approximately 2.63 cm of aneurysm nor dissection. LUNGS: Atelectasis/scarring seen both lung bases including the lingular and middle lobe regions. . . There is a small approximately 4.7 mm calcified granuloma of posteromedial aspect superior segment right lower lobes. In addition, there is a tiny approximately 3.25 mm nodule medial aspect superior aspect left lower lobe as well. Possibility of small metastatic lesion not excluded. PET scan followup may be of some benefit if necessary. PLEURAL SPACES: Unremarkable. No effusion or pneuomothorax. HEART: Heart size is within range of normal. No significant pericardial effusion. LYMPH NODES: Few small nonspecific mediastinal lymph nodes are present. Approximately 12.2 mm right hilar lymph node present. Central airways are midline and patent. No endobronchial lesion seen. There is a small hiatal hernia with wall thickening of the distal esophagus that could be due to protrusion gastric mucosa. Possibility of esophagitis or other intrinsic/ invasive wall lesion cannot be excluded. BONES, CHEST WALL: Unremarkable. No fracture or destructive lesion OTHER FINDINGS: Apparent postoperative resection left lobe liver. Low-attenuation lesions scattered throughout the hepatic parenchyma poorly seen due to injection timing. Re- demonstrated is an in situ percutaneous biliary drainage catheter. . Apparent post cholecystectomy Spleen is markedly enlarged measuring nearly 15 cm in AP dimension. Wall thickening of the stomach likely due to underdistention. Gastritis or other intrinsic/invasive wall lesion not excluded. Medium-sized ventral wall hernia and/or short segment dehiscence of the anterior abdominal wall IMPRESSION: No evidence of acute pulmonary embolus. Bibasilar atelectasis and or scarring changes. Small approximately 4.7 mm calcified granuloma right medial lung base ; rule out prior exposure to granulomatous disease process. . The tiny approximately 3.25 mm nodule superior aspect left lower lobe. Possibly a small metastatic lesion not excluded. Follow-up PET scan may be prudent. Marked splenomegaly. Apparent post resection left lobe liver with in situ percutaneous biliary drainage catheter. Low-attenuation lesions scattered throughout the hepatic parenchyma poorly seen due to injection timing. Apparent up post cholecystectomy
== END 2016-12-20 06:23 | disposition home or self-care (01) ==
LOC: H.ER 00:47
DX: C79.51 Secondary malignant neoplasm of bone (principal); C22.9 Malignant neoplasm of liver, not specified as primary or secondary; J84.10 Pulmonary fibrosis, unspecified
CPT/HCPCS: 71010; 71275; 80053; 81003; 84484; 85025; 93005; 96374; 96375; 96376; 99284; J1170; J2405; J7040; Q9967

== ENCOUNTER 2016-12-22 16:49 | Emergency (ER) | payer OTHER ==
[2016-12-22 16:49] VITALS: BMI 21.6
[2016-12-22 17:01] VITALS: BP 115/72; PULSE 100; RESP 22; TEMP 98.8; O2SAT 100
--- NOTE | 2016-12-22 17:45 | ED PDOC ---
Lower Extremity Pain/Injury Time Seen by Provider: 12/22/16 17:05 Chief Complaint (Nursing): Lower Extremity Problem/Injury Additional Complaint(s): Patient is a 36 y/o M with atraumatic hip pain x 2 months. He has had prior ED evaluations and CT that shows metastatic liver cancer to L sacrum. Patient is presenting with L hip pain. He reports that it is the same pain as when he was seen 2 days ago. Denies new trauma. He reports that he called EMS to take him to his oncologist Dr. Irving at [facility] but they refused so he came to [facility] instead. Denies chest pain, shortness of breath, dysuria, change in bladder or bowel habits, weakness, numbness, tingling. Ambulated into ED without issue Past Medical History Vital Signs: Last Vital Signs Temp 98.8 F 12/22/16 16:59 Pulse 100 H 12/22/16 16:59 Resp 22 12/22/16 16:59 BP 115/72 12/22/16 16:59 Pulse Ox 100 12/22/16 16:59 - Medical History PMH: Anemia, Gall Bladder Disease, Malignancy (cholangiocarcinoma) Denies: HIV, Chronic Kidney Disease - Surgical History Surgical History: Appendectomy, Cholecystectomy - Family History Family History: States: Unknown Family Hx - Immunization History Hx Tetanus Toxoid Vaccination: No Hx Influenza Vaccination: No Hx Pneumococcal Vaccination: No - Home Medications Home Medications: Ambulatory Orders Medication Instructions Recorded oxyCODONE [oxyCODONE Immediate 5 mg PO Q6 PRN 04/19/16 Release Tab] Ciprofloxacin/Ciprofloxa HCl 500 mg PO BID #14 tab 12/11/16 [Ciprofloxacin] Metronidazole [Flagyl] 500 mg PO TID #21 tab 12/11/16 traMADol [Ultram] 50 mg PO TID PRN #15 tab 12/11/16 Azithromycin [Zithromax] 250 mg PO DAILY #6 tab 12/20/16 oxyCODONE/Acetaminophen [Percocet 1 ea PO Q6 #5 tab 12/22/16 5/325 mg Tab] - Allergies Allergies/Adverse Reactions: Allergies Allergy/AdvReac Type Severity Reaction Status Date / Time morphine Allergy SHORTNESS Verified 07/05/16 10:33 OF BREATH Review of Systems Constitutional: Negative for: Fever, Chills Cardiovascular: Negative for: Chest Pain, Palpitations, Paroxysmal Noc. Dyspnea , Light Headedness Respiratory: Negative for: Cough, Shortness of Breath, SOB with Exertion, Wheezing Gastrointestinal: Negative for: Nausea, Vomiting, Abdominal Pain, Diarrhea, Constipation Genitourinary Male: Negative for: Dysuria, Incontinence Musculoskeletal: Positive for: Other (L hip pain). Negative for: Neck Pain, Shoulder Pain Neurological: Negative for: Weakness, Numbness, Incoordination, Confusion, Seizures, Altered Mental Status, Headache Physical Exam - Reviewed Nursing Documentation Reviewed: Yes Vital Signs Reviewed: Yes - Physical Exam Appears: Positive for: Well, Non-toxic, No Acute Distress Skin: Positive for: Normal Color, Warm, DRY Cardiovascular/Chest: Positive for: Regular Rate, Rhythm Respiratory: Positive for: CNT, Normal Breath Sounds Gastrointestinal/Abdominal: Positive for: Soft, Other (surgical scar with mass) . Negative for: Tenderness Back: Positive for: Normal Inspection, Other (bony L hip pain). 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 Patient was again instructed on the importance of oncology follow-up. He ambulated into ED without issue. He has no neurologic deficits and known bony metastasis to L sacrum. [place] MDrx was checked and he has not had any narcotic prescriptions since August. He was given dose in ED and due to bony metastasis will dc with pain medication. Disposition - Clinical Impression Clinical Impression: Hip pain, Metastatic cancer - Disposition Disposition: Routine/Home Disposition Time: 17:46 Condition: GOOD Additional Instructions: You must follow-up with your oncologist. Take percocet for pain. Return to ED if condition worsens. Prescriptions: oxyCODONE/Acetaminophen [Percocet 5/325 mg Tab] 1 ea PO Q6 #5 tab Instructions: Bone Metastasis (ED) Forms: [employer] (Portuguese)
== END 2016-12-22 19:07 | disposition home or self-care (01) ==
LOC: H.ER 16:49
DX: C79.51 Secondary malignant neoplasm of bone (principal)

== ENCOUNTER 2017-01-20 22:34 | Inpatient (IN) | payer OTHER, SELFPAY ==
[2017-01-20 22:34] VITALS: BMI 21.6
[2017-01-20] MEDS ORDERED: Iohexol 240 (50 ml) PO ONE (22:48)
[2017-01-20] MEDS ORDERED: Sodium Chloride 0.9% 1,000 ML IV STA (23:01)
[2017-01-20] MEDS ORDERED: Iohexol 240 (50 ml) ONE (23:08)
[2017-01-20 23:44] LABS: BASO % 0.8 % (0.0-2.0); EOS # 0.2 K/uL (0.0-0.7); EOS % 3.2 % (0.0-4.0); HEMATOCRIT 33.2 % (35.0-51.0); LYMPH % 16.7 % (20.0-40.0); MEAN CORPUSCULAR HEMOGLOBIN 27.3 pg (27.0-31.0); MEAN CORPUSCULAR HGB CONC 33.3 g/dL (33.0-37.0); MEAN PLATELET VOLUME 8.1 fl (7.2-11.7); MONO # 0.7 K/uL (0.0-0.8); MONO % 11.9 % (0.0-10.0); NEUT # 3.9 K/uL (1.8-7.0); NEUT % 67.4 % (50.0-75.0); NRBC % 0.1 % (0.0-0.0); RED CELL DISTRIBUTION WIDTH 16.5 % (11.5-14.5); WHITE BLOOD COUNT 5.8 K/uL (4.8-10.8)
[2017-01-20 23:55] LABS: ALB/GLOB RATIO 0.7 (1.0-2.1); ALKALINE PHOSPHATASE 727 U/L (38-126); ALT/SGPT 89 U/L (21-72); AST/SGOT 158 U/L (17-59); BILIRUBIN,TOTAL 7.4 mg/dl (0.2-1.3); BLOOD UREA NITROGEN 3 mg/dl (9-20); CALCIUM 8.7 mg/dL (8.4-10.2); CARBON DIOXIDE 23 mmol/L (22-30); CHLORIDE 99 mmol/L (98-107); GFR AFRICAN-AMERICAN > 60; GLUCOSE,RANDOM 139 mg/dL (75-110); LIPASE 302 U/L (23-300); SODIUM 138 mmol/l (132-148); TOTAL PROTEIN 7.9 G/DL (6.3-8.2)
[2017-01-21 00:03] LABS: POTASSIUM 2.5 MMOL/L (3.6-5.0)
[2017-01-21 01:51] LABS: RBC URINE 2 /hpf (0-3); URINE BACTERIA RARE (<OCC); URINE BILIRUBIN NEGATIVE (NEGATIVE); URINE BLOOD NEGATIVE (NEGATIVE); URINE COLOR BLUE (YELLOW); URINE GLUCOSE (UA) NEG (Normal); URINE KETONE NEGATIVE (NEGATIVE); URINE LEUKOCYTE ESTERASE NEG Leu/uL (Negative); URINE PROTEIN NEGATIVE (NEGATIVE); WBC URINE 1 /hpf (0-5)
[2017-01-21] MEDS ORDERED: Iohexol 300 100 ML IJ ONE (02:03)
[2017-01-21] MEDS ORDERED: Sodium Chloride 0.9% 50 ML IV ONE (02:04)
[2017-01-21] MEDS: Potassium CL 10 MEQ/50 ML 50 ML IVPB SCH ×3 (02:41→04:46)
[2017-01-21] MEDS ORDERED: Sodium Chloride 0.9% 1,000 ML IV STA (03:47)
[2017-01-21] MEDS ORDERED: HYDROmorphone 0.5 mg/0.5 ml ISec IVP PRN (04:45)
[2017-01-21] MEDS ORDERED: HYDROmorphone 0.5 mg/0.5 ml ISec ONE (04:52)
[2017-01-21] MEDS: Potassium Chl 40 mEq in D5-NS 1,000 ML IV SCH ×5 (06:08→23:36)
[2017-01-21] MEDS: Potassium Chloride 20 mEq ER Tab PO SCH ×2 (08:56→17:18)
[2017-01-21] MEDS ORDERED: levoFLOXacin 500 MG TAB PO SCH (09:00)
[2017-01-21 09:05] LABS: CALCIUM 7.8 mg/dL (8.4-10.2); CARBON DIOXIDE 21 mmol/L (22-30); CHLORIDE 110 mmol/L (98-107); GFR AFRICAN-AMERICAN > 60; GLUCOSE,RANDOM 102 mg/dL (75-110); SODIUM 141 mmol/l (132-148)
[2017-01-21 09:06] LABS: BLOOD UREA NITROGEN 2 mg/dl (9-20)
[2017-01-21] MEDS: HYDROmorphone 0.5 mg/0.5 ml ISec IVP PRN ×2 (13:45→18:24)
[2017-01-21 14:38] LABS: BLOOD UREA NITROGEN < 2 mg/dl (9-20); CALCIUM 8.1 mg/dL (8.4-10.2); CARBON DIOXIDE 20 mmol/L (22-30); CHLORIDE 109 mmol/L (98-107); GFR AFRICAN-AMERICAN > 60; GLUCOSE,RANDOM 158 mg/dL (75-110); MAGNESIUM 1.5 MG/DL (1.6-2.3); PHOSPHOROUS 2.3 mg/dl (2.5-4.5); POTASSIUM 3.3 MMOL/L (3.6-5.0); SODIUM 142 mmol/l (132-148)
[2017-01-21] MEDS ORDERED: Potassium Phosphate 15 MMOLE in Dextrose 5% In Water 250 ML IV ONE (15:00)
[2017-01-21] MEDS ORDERED: Magnesium Sulfate 2 gm/50 ml 2 GM/50 ML BAG IVPB ONE (15:00)
[2017-01-21] MEDS: oxyCODONE 20 mg ER Tab (oxyCONTIN) PO SCH (22:07)
[2017-01-22] MEDS: Potassium Chl 40 mEq in D5-NS 1,000 ML IV SCH (01:34)
[2017-01-22] MEDS: HYDROmorphone 0.5 mg/0.5 ml ISec IVP PRN ×4 (04:48→22:23)
[2017-01-22] MEDS ORDERED: Potassium Ch 20mEq in D5-1/2NS 1,000 ML IV SCH (05:15)
[2017-01-22 06:29] LABS: HEMATOCRIT 29.5 % (35.0-51.0); MEAN CELL VOLUME 83.1 fl (80.0-94.0); MEAN CORPUSCULAR HEMOGLOBIN 27.6 pg (27.0-31.0); MEAN CORPUSCULAR HGB CONC 33.2 g/dL (33.0-37.0); RED CELL DISTRIBUTION WIDTH 16.6 % (11.5-14.5); WHITE BLOOD COUNT 4.6 K/uL (4.8-10.8)
[2017-01-22 06:33] LABS: CARBON DIOXIDE 20 mmol/L (22-30); CHLORIDE 112 mmol/L (98-107); GFR AFRICAN-AMERICAN > 60; GLUCOSE,RANDOM 97 mg/dL (75-110); POTASSIUM 3.2 MMOL/L (3.6-5.0); SODIUM 142 mmol/l (132-148)
[2017-01-22 06:56] LABS: BLOOD UREA NITROGEN < 2 mg/dl (9-20)
[2017-01-22] MEDS: Potassium Chloride 20 mEq ER Tab PO SCH ×2 (08:43→16:53)
[2017-01-22] MEDS: oxyCODONE 20 mg ER Tab (oxyCONTIN) PO SCH (09:32)
[2017-01-22] MEDS: KCL 40MEQ/NS 1L 1,000 ML IV SCH ×3 (11:27→22:24)
[2017-01-22] MEDS: oxyCODONE 10 mg ER Tab (oxyCONTIN) PO SCH (21:33)
[2017-01-23 00:54] VITALS: RESP 20
[2017-01-23] MEDS: HYDROmorphone 0.5 mg/0.5 ml ISec IVP PRN ×2 (03:48→08:52)
[2017-01-23 06:53] LABS: BASO % 0.6 % (0.0-2.0); EOS # 0.2 K/uL (0.0-0.7); EOS % 4.2 % (0.0-4.0); HEMATOCRIT 29.2 % (35.0-51.0); LYMPH % 21.3 % (20.0-40.0); MEAN CELL VOLUME 83.8 fl (80.0-94.0); MEAN CORPUSCULAR HEMOGLOBIN 27.5 pg (27.0-31.0); MEAN CORPUSCULAR HGB CONC 32.8 g/dL (33.0-37.0); MEAN PLATELET VOLUME 8.4 fl (7.2-11.7); MONO # 0.6 K/uL (0.0-0.8); MONO % 13.1 % (0.0-10.0); NEUT % 60.8 % (50.0-75.0); NRBC % 0.1 % (0.0-0.0); RED CELL DISTRIBUTION WIDTH 16.9 % (11.5-14.5); WHITE BLOOD COUNT 4.9 K/uL (4.8-10.8)
[2017-01-23 07:03] LABS: ALKALINE PHOSPHATASE 534 U/L (38-126); ALT/SGPT 76 U/L (21-72); AST/SGOT 119 U/L (17-59); BILIRUBIN,TOTAL 5.1 mg/dl (0.2-1.3); BLOOD UREA NITROGEN 3 mg/dl (9-20); CALCIUM 7.9 mg/dL (8.4-10.2); CARBON DIOXIDE 19 mmol/L (22-30); CHLORIDE 112 mmol/L (98-107); GFR AFRICAN-AMERICAN > 60; GLUCOSE,RANDOM 88 mg/dL (75-110); MAGNESIUM 1.5 MG/DL (1.6-2.3); PHOSPHOROUS 3.2 mg/dl (2.5-4.5); POTASSIUM 3.9 MMOL/L (3.6-5.0); SODIUM 143 mmol/l (132-148); TOTAL PROTEIN 6.6 G/DL (6.3-8.2)
[2017-01-23 07:05] LABS: ALB/GLOB RATIO 0.7 (1.0-2.1)
[2017-01-23 08:17] VITALS: BP 97/56; PULSE 91; TEMP 98.3; O2SAT 97
[2017-01-23] MEDS: Potassium Chloride 20 mEq ER Tab PO SCH (08:46)
[2017-01-23] MEDS: KCL 40MEQ/NS 1L 1,000 ML IV SCH (08:46)
[2017-01-23] MEDS: oxyCODONE 10 mg ER Tab (oxyCONTIN) PO SCH (08:49)
[2017-01-23] MEDS ORDERED: HYDROmorphone 0.5 mg/0.5 ml ISec IVP PRN (12:09)
== END 2017-01-23 15:00 | disposition hospice, home (50) | DRG 203 ==
LOC: H.ER 22:34 → H.EROBSV 01-21 → H.ERHOLD 01-21 04:27 → H.MEDSURG1 01-21 05:24 → OBSVTOIN 01-22 14:48
PROVIDERS: ADMIT Internal Medicine; ATTEND Internal Medicine
DX: C22.1 Intrahepatic bile duct carcinoma (principal); J90 Pleural effusion, not elsewhere classified; C78.00 Secondary malignant neoplasm of unspecified lung; C78.7 Secondary malignant neoplasm of liver and intrahepatic bile duct; C79.51 Secondary malignant neoplasm of bone; E87.6 Hypokalemia; J98.11 Atelectasis; F41.9 Anxiety disorder, unspecified; G89.3 Neoplasm related pain (acute) (chronic); D63.0 Anemia in neoplastic disease; Z66 Do not resuscitate; Z79.899 Other long term (current) drug therapy; Z90.49 Acquired absence of other specified parts of digestive tract; Z92.21 Personal history of antineoplastic chemotherapy; Z92.3 Personal history of irradiation; Z87.01 Personal history of pneumonia (recurrent)

== ENCOUNTER 2017-01-25 08:34 | Observation (INO) | payer SELFPAY ==
[2017-01-25 08:34] VITALS: BMI 21.6
[2017-01-25] MEDS ORDERED: HYDROmorphone 0.5 mg/0.5 ml ISec IVP STA (09:18)
[2017-01-25] MEDS ORDERED: Sodium Chloride 0.9% 1,000 ML IV STA (09:18)
[2017-01-25 09:44] LABS: BASO % 0.3 % (0.0-2.0); EOS # 0.1 K/uL (0.0-0.7); EOS % 1.2 % (0.0-4.0); HEMATOCRIT 29.9 % (35.0-51.0); LYMPH # 0.8 K/uL (1.0-4.3); LYMPH % 14.6 % (20.0-40.0); MEAN CELL VOLUME 81.6 fl (80.0-94.0); MEAN CORPUSCULAR HEMOGLOBIN 28.2 pg (27.0-31.0); MEAN CORPUSCULAR HGB CONC 34.6 g/dL (33.0-37.0); MEAN PLATELET VOLUME 8.4 fl (7.2-11.7); MONO # 0.7 K/uL (0.0-0.8); MONO % 12.1 % (0.0-10.0); NEUT # 4.1 K/uL (1.8-7.0); NEUT % 71.8 % (50.0-75.0); NRBC % 0.2 % (0.0-0.0); RED CELL DISTRIBUTION WIDTH 16.8 % (11.5-14.5); WHITE BLOOD COUNT 5.7 K/uL (4.8-10.8)
[2017-01-25 09:54] LABS: ALB/GLOB RATIO 0.7 (1.0-2.1); ALKALINE PHOSPHATASE 605 U/L (38-126); ALT/SGPT 67 U/L (21-72); AST/SGOT 187 U/L (17-59); BILIRUBIN,TOTAL 7.3 mg/dl (0.2-1.3); BLOOD UREA NITROGEN 4 mg/dl (9-20); CALCIUM 8.1 mg/dL (8.4-10.2); CARBON DIOXIDE 25 mmol/L (22-30); CHLORIDE 103 mmol/L (98-107); GFR AFRICAN-AMERICAN > 60; GLUCOSE,RANDOM 92 mg/dL (75-110); LIPASE 201 U/L (23-300); POTASSIUM 2.8 MMOL/L (3.6-5.0); SODIUM 139 mmol/l (132-148)
[2017-01-25] MEDS ORDERED: Potassium Chloride 20 mEq ER Tab PO ONE ×2 (10:19→12:47)
[2017-01-25] MEDS ORDERED: Iodixanol 320 MG/ML 100 ML BOTTLE IV ONE (11:07)
[2017-01-25] MEDS ORDERED: Sodium Chloride 0.9% 50 ML IV ONE (11:07)
--- NOTE | 2017-01-25 11:31 | ED PDOC ---
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 Recently discharged from [facility] for possible palliative care, Rx dilaudid and oxycodone but states not helping. Patient crying in pain and unable to give further history. Past Medical History Reviewed: Historical Data, Nursing Documentation, Vital Signs - Medical History PMH: Anemia, Gall Bladder Disease, Malignancy (cholangiocarcinoma) Denies: HIV, Chronic Kidney Disease - Surgical History Surgical History: Appendectomy Denies: Cholecystectomy (pt. denies) - Family History Family History: States: Unknown Family Hx - Living Arrangements Living Arrangements: With Family - Social History Current smoker - smoking cessation education provided: No - Immunization History Hx Tetanus Toxoid Vaccination: No Hx Influenza Vaccination: No Hx Pneumococcal Vaccination: No - Home Medications Home Medications: Ambulatory Orders Medication Instructions Recorded Baclofen [Lioresal] 10 mg PO TID #90 tab 01/22/17 Docusate [Colace] 100 mg PO BID #60 cap 01/22/17 Gabapentin [Neurontin] 400 mg PO TID #90 cap 01/22/17 HYDROmorphone [Dilaudid] 4 mg PO Q6 PRN #60 tab 01/22/17 Potassium Chloride [K-Dur 20 mEq 20 meq PO BID #30 tab 01/22/17 ER Tab] oxyCODONE [oxyCONTIN Extended 30 mg PO Q12 #30 tabsr 01/22/17 Release Tab] - Allergies Allergies/Adverse Reactions: Allergies Allergy/AdvReac Type Severity Reaction Status Date / Time morphine Allergy SHORTNESS Verified 01/25/17 09:05 OF BREATH Review of Systems Constitutional: Positive for: Weakness. Negative for: Fever, Chills Cardiovascular: Positive for: Chest Pain Respiratory: Positive for: Shortness of Breath Gastrointestinal: Positive for: Abdominal Pain Musculoskeletal: Positive for: Arm Pain, Back Pain, Leg Pain Skin: Negative for: Rash, Lesions Neurological: Positive for: Weakness, Dizziness. Negative for: Numbness Physical Exam - Reviewed Nursing Documentation Reviewed: Yes Vital Signs Reviewed: Yes - Physical Exam Appears: Positive for: Non-toxic (painful distress, jaundice, ill but nontoxic appearing) Head Exam: Positive for: ATRAUMATIC, NORMAL INSPECTION, NORMOCEPHALIC Skin: Positive for: Normal Color, Warm, DRY Eye Exam: Positive for: Normal appearance, EOMI, PERRL, Scleral icterus ENT: Positive for: Normal ENT Inspection Neck: Positive for: Normal, Painless ROM Cardiovascular/Chest: Positive for: Regular Rate, Rhythm Respiratory: Positive for: CNT, Normal Breath Sounds Gastrointestinal/Abdominal: Positive for: Bowel Sounds, Soft, Tenderness ( diffuse) Back: Positive for: Normal Inspection Extremity: Positive for: Normal ROM Neurologic/Psych: Positive for: Alert, Oriented. Negative for: Motor/Sensory Deficits - Laboratory Results Result Diagrams: 01/25/17 09:35 01/25/17 09:35 Medical Decision Making Medical Decision Making: labs to be obtained Dilaudid given for pain. Resting tachycardia and SOB, comfortable on supp O2, need to r/o PE given chest pain, tachycardia and malignancy. -------- labs reviewed, hypokalemia, K+ replacement initiated chronic elev LFTs although TBili worsening Disposition - Disposition Forms: [employer] (Turkish)
--- NOTE | 2017-01-25 12:40 | CT ---
PROCEDURE: CT Chest with contrast (Pulmonary Angiogram) HISTORY: chest pain, tachycardia, malignancy, cholangiocarcinoma. COMPARISON: Chest CT with contrast 01/21/2017. TECHNIQUE: Axial computed tomography images were obtained of the chest in the pulmonary arterial phase of enhancement. Coronal and sagittal reformatted images were created and reviewed. Intravenous contrast dose: Visipaque 320, 99 cc. Radiation dose: Total exam DLP = 353.60 mGy-cm. This CT exam was performed using one or more of the following dose reduction techniques: Automated exposure control, adjustment of the mA and/or kV according to patient size, and/or use of iterative reconstruction technique. FINDINGS: PULMONARY ARTERIES: Unremarkable. No pulmonary embolism. AORTA: No acute findings. No thoracic aortic aneurysm. LUNGS: Likely compressive atelectasis affects the majority the right lung with segments of the right upper lobe remaining well aerated in the nondependent right hemithorax. Linear atelectasis seen affecting the left lobe more so than previously shown with with a 3 mm nodular about the medial left apex. Central airways remain grossly clear and there is no pneumothorax identified. PLEURAL SPACES: A large right pleural effusion occupies the majority the right hemithorax in the interval. No left pleural effusion or significant pericardial effusion. HEART: Unremarkable. No cardiomegaly. No significant pericardial effusion. LYMPH NODES: No lymphadenopathy. Calcified lymph nodes are granulomata are seen at the right hilum once again. BONES, CHEST WALL: Unremarkable. No fracture or destructive lesion OTHER FINDINGS: Right central venous chest port are again identified. Limited imaging through the visualized upper abdomen reveals a transhepatic drainage catheter terminating at the fernando hepatis region once again. Innumerable hepatic metastases again seen as well as splenomegaly to 15.5 cm acute trace upper abdominal peritoneal fluid is seen within the bowel Mesentery. Thickened stomach wall is not excluded at this time. IMPRESSION: 1. A large right pleural effusion exerts compression atelectasis at the majority of the right lung with right upper lobe remaining partially aerated. No left pleural effusion. No CT evidence to suggest pulmonary embolus. 2. No left-sided infiltrate. Tiny nodule noted left apex. 3. Innumerable hepatic metastases again identified with splenomegaly. Transhepatic catheter is again seen entering from the right terminating at the fernando hepatis region. 4. Additional findings as discussed above.
[2017-01-25 12:46] LABS: URINE BILIRUBIN SMALL (NEGATIVE); URINE BLOOD NEGATIVE (NEGATIVE); URINE COLOR AMBER (YELLOW); URINE GLUCOSE (UA) NEG (Normal); URINE KETONE TRACE mg/dL (NEGATIVE); URINE LEUKOCYTE ESTERASE NEG Leu/uL (Negative); URINE PROTEIN NEGATIVE (NEGATIVE)
--- NOTE | 2017-01-25 14:52 | CP.PCM.HP ---
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 He was given po Dilaudid upon discharge with instructions to follow up with his oncologist in [place], however the patient did not make the appointment. Today, the patient presents to the emergency department for worsening abdominal pain and shortness of breath. There is a large right pleural effusion increased in size compared to the prior CT with loculation. There is no significant left sided pleural effusion. Given the patient's significant hypokalemia and intractable pain, the patient is to be placed on observation. IR US guided therapeutic thoracentesis will also be performed. Translation was provided in Chinese with Dr. Hicks. Present on Admission - Present on Admission Any Indicators Present on Admission: No Review of Systems - Hematologic/Lymphatic Additional comments: CONSTITUTIONAL: c/o fatigue, No weight loss, fever, chills HEENT: Eyes: No visual loss, blurred vision, double vision. + yellow slerae Ears, Nose, Throat: No hearing loss, sneezing, congestion, runny nose or sore throat. SKIN: No rash or itching. CARDIOVASCULAR: No chest pain, chest pressure or chest discomfort. No palpitations or edema. RESPIRATORY: Complains of worsening shortness of breath dry cough. GASTROINTESTINAL: Chronic abdominal pain. No anorexia, nausea, vomiting or diarrhea. No abdominal pain or blood. GENITOURINARY: no frequency, dysuria, cloudy urine NEUROLOGICAL: No headache, dizziness, syncope, paralysis, ataxia, numbness or tingling in the extremities. No change in bowel or bladder control. MUSCULOSKELETAL: No muscle, back pain, joint pain or stiffness. HEMATOLOGIC: No anemia, bleeding or bruising. LYMPHATICS: No enlarged nodes. No history of splenectomy. PSYCHIATRIC: No history of depression or anxiety. ENDOCRINOLOGIC: No reports of sweating, cold or heat intolerance. No polyuria or polydipsia. ALLERGIES: No history of asthma, hives, eczema or rhinitis. Past Patient History - Infectious Disease Hx of Infectious Diseases: None - Tetanus Immunizations Tetanus Immunization: Unknown - Past Medical History & Family History Past Medical History?: Yes - Past Social History Smoking Status: Former Smoker - CARDIAC Hx Cardiac Disorders: No - PULMONARY Hx Respiratory Disorders: No - NEUROLOGICAL Hx Neurological Disorder: No - HEENT Hx HEENT Problems: No - RENAL Hx Chronic Kidney Disease: No - ENDOCRINE/METABOLIC Hx Endocrine Disorders: No - HEMATOLOGICAL/ONCOLOGICAL Hx Anemia: Yes Hx Human Immunodeficiency Virus (HIV): No - INTEGUMENTARY Hx Dermatological Problems: No - MUSCULOSKELETAL/RHEUMATOLOGICAL Hx Falls: No - GASTROINTESTINAL Hx Gall Bladder Disease: Yes - GENITOURINARY/GYNECOLOGICAL Hx Genitourinary Disorders: No - PSYCHIATRIC Hx Psychophysiologic Disorder: No Hx Substance Use: No - SURGICAL HISTORY Hx Appendectomy: Yes Hx Cholecystectomy: No (pt. denies) - ANESTHESIA Hx Anesthesia: Yes Hx Anesthesia Reactions: No Meds Allergies/Adverse Reactions: Allergies Allergy/AdvReac Type Severity Reaction Status Date / Time morphine Allergy SHORTNESS Verified 01/25/17 09:05 OF BREATH Physical Exam - Additional Findings Additional findings: PHYSICAL EXAMINATION: GENERAL: The patient is alert and oriented x 3, pain improved with Dilaudid administration, appears comfortable HEENT: Normocephalic, atraumatic. Extraocular movements intact. No sinus tenderness. Oropharynx clear. Mucous membranes are moist. + scleral icterus NECK: Supple without lymph node. CHEST: Decreased breath sounds on the right. no wheezing. No rhonchi. HEART: S1, S2. Borderline tachycardia. Regular rhythm. ABDOMEN: Soft, nontender. Surgical scar noted. No organomegaly. EXTREMITIES: No cyanosis, clubbing or edema. NEUROLOGIC: No focal deficit. No sensory deficit. PSYCHOSOCIAL: No signs of depression and is nonfocal. INTEGUMENT: Moist mucous membranes. Good skin turgor, intact. Results - Vital Signs Recent Vital Signs: Last Vital Signs Temp 98.6 F 01/25/17 13:03 Pulse 96 H 01/25/17 12:58 Resp 16 01/25/17 12:58 BP 97/57 L 01/25/17 12:58 Pulse Ox 98 01/25/17 12:58 - Labs Result Diagrams: 01/25/17 09:35 01/25/17 09:35 Labs: Laboratory Results - last 24 hr 01/25/17 01/25/17 01/25/17 09:35 09:35 12:27 WBC 5.7 RBC 3.66 L Hgb 10.3 L Hct 29.9 L MCV 81.6 D MCH 28.2 MCHC 34.6 RDW 16.8 H Plt Count 134 MPV 8.4 Neut % (Auto) 71.8 Lymph % (Auto) 14.6 L [place] % (Auto) 12.1 H Eos % (Auto) 1.2 Baso % (Auto) 0.3 Neut # 4.1 Lymph # 0.8 L [place] # 0.7 Eos # 0.1 Baso # 0.0 Sodium 139 Potassium 2.8 L Chloride 103 Carbon Dioxide 25 Anion Gap 14 BUN 4 L Creatinine 0.4 L Est GFR ( Amer) > 60 Est GFR (Non-Af Amer) > 60 Random Glucose 92 Calcium 8.1 L Total Bilirubin 7.3 H AST 187 H D ALT 67 Alkaline Phosphatase 605 H Total Protein 7.0 Albumin 2.8 L Globulin 4.2 H Albumin/Globulin Ratio 0.7 L Lipase 201 Urine Color [place] Urine Clarity Slighty-cloudy Urine pH 7.0 Ur Specific [place] 1.038 H Urine Protein Negative Urine Glucose (UA) Neg Urine Ketones Trace Urine Blood Negative Urine Nitrate Negative Urine Bilirubin Small Urine Urobilinogen 4.0 Ur Leukocyte Esterase Neg Amorphous Sediment Rare H Assessment & Plan - Assessment and Plan (Free Text) Plan: ASSESSMENT - Intractable abdominal pain - Hypokalemia, potassium 2.8 - Right sided malignant loculated pleural effusion, large, with compressive atelectasis. - Metastatic cholangiocarcinoma - Abdominal pain secondary to neoplasm PLAN - Observation on telemetry - Continue supplementation of potassium with Kdur 20 mg po BID. - Therapeutic thoracentesis, US guided, with IR. Pt saturating ok at this time - Pain control with Dilaudid sliding scale - Regular diet as patient's nausea has improved with Zofran - Continue Neurontin 400 mg po TID - Continue Baclofen 10 mg po TID - Zofran 4 mg IV q 6 hours PRN for nausea/vomiting - Estimated LOS < 2 midnights
[2017-01-25] MEDS: Potassium Chloride 20 mEq ER Tab PO SCH (18:55)
[2017-01-25] MEDS: HYDROmorphone 0.5 mg/0.5 ml ISec IVP PRN (20:23)
[2017-01-25] MEDS ORDERED: Phytonadione 10 mg/ml Inj (Adult) SC ONE (20:30)
[2017-01-25] MEDS: oxyCODONE 10 mg ER Tab (oxyCONTIN) PO SCH (23:19)
[2017-01-26 08:46] LABS: BLOOD UREA NITROGEN 3 mg/dl (9-20); CALCIUM 7.9 mg/dL (8.4-10.2); CARBON DIOXIDE 23 mmol/L (22-30); CHLORIDE 104 mmol/L (98-107); GFR AFRICAN-AMERICAN > 60; GLUCOSE,RANDOM 78 mg/dL (75-110); MAGNESIUM 1.4 MG/DL (1.6-2.3); POTASSIUM 3.2 MMOL/L (3.6-5.0); SODIUM 137 mmol/l (132-148)
[2017-01-26] MEDS ORDERED: Enoxaparin 40 mg Syringe SC SCH (09:00)
[2017-01-26] MEDS: HYDROmorphone 0.5 mg/0.5 ml ISec IVP PRN (09:07)
[2017-01-26] MEDS ORDERED: Magnesium Sulfate 2 gm/50 ml 2 GM/50 ML BAG IVPB ONE (09:45)
[2017-01-26] MEDS ORDERED: Potassium Chloride 20 mEq/15 ml LIQ UD PO ONE (09:45)
[2017-01-26] MEDS: Potassium Chloride 20 mEq ER Tab PO SCH ×3 (10:11→17:48)
[2017-01-26] MEDS: oxyCODONE 10 mg ER Tab (oxyCONTIN) PO SCH ×2 (10:12→11:42)
[2017-01-26] MEDS ORDERED: Lidocaine 1% Inj (20ml) ONE (13:17)
--- NOTE | 2017-01-26 14:04 | PCM.SURG1 ---
Surgeon's Initial Post Op Note - Surgeon's Notes Surgeon: Chris Oliver MD Biophysics Scientist: NONE Type of Anesthesia: Local Pre-Operative Diagnosis: Right pleural effusion Operative Findings: US showed a large right effusion. Post-Operative Diagnosis: Right pleural effusion Operation Performed: US guided right thoracentesis. Specimen/Specimens Removed: 1.6 liters of jackie colored fluid Estimated Blood Loss: EBL {In ML}: 0 Blood Products Given: N/A Drains Used: No Drains Post-Op Condition: Fair Date of Surgery/Procedure: 01/26/17 Time of Surgery/Procedure: 14:00
--- NOTE | 2017-01-26 14:41 | RAD ---
PROCEDURE: CHEST RADIOGRAPH, 1 VIEW HISTORY: S/P Right thoracentesis COMPARISON: 01/11/2017 chest x-ray 01/25/2017 CT angiogram documenting a large right pleural effusion FINDINGS: LUNGS: Consolidative changes right lower lobe. PLEURA: No pneumothorax following right thoracentesis. Residual right pleural effusion identified. CARDIOVASCULAR: No radiographic findings to suggest acute or significant cardiovascular disease. Venous access catheter in stable, satisfactory position. OSSEOUS STRUCTURES: No significant abnormalities. VISUALIZED UPPER ABDOMEN: Normal. OTHER FINDINGS: None. IMPRESSION: Status post right thoracentesis with marked decrease in right pleural effusion and improved aeration, commensurate expansion of the right lung. No pneumothorax identified.
[2017-01-26] MEDS ORDERED: Potassium Chloride 20 mEq ER Tab PO ONE (16:11)
--- NOTE | 2017-01-26 16:14 | CP.PCM.DIS ---
Provider - Provider Date of Admission: 01/25/17 13:22 Attending physician: Cheng Raza DO Consults: IR : Thoracentesis Time Spent in preparation of Discharge (in minutes): 30 Diagnosis - Discharge Diagnosis (1) Abdominal pain Status: Acute (2) Cholangiocarcinoma metastatic to liver Status: Chronic (3) Bone metastasis Status: Chronic (4) Pleural effusion, malignant Status: Acute (5) Hypokalemia Status: Acute (6) Anemia Status: Chronic Hospital Course - Lab Results Lab Results: Most Recent Lab Values WBC 5.7 K/uL (4.8-10.8) 01/25/17 09:35 RBC 3.66 Mil/uL (4.40-5.90) L 01/25/17 09:35 Hgb 10.3 g/dL (12.0-18.0) L 01/25/17 09:35 Hct 29.9 % (35.0-51.0) L 01/25/17 09:35 MCV 81.6 fl (80.0-94.0) D 01/25/17 09:35 MCH 28.2 pg (27.0-31.0) 01/25/17 09:35 MCHC 34.6 g/dL (33.0-37.0) 01/25/17 09:35 RDW 16.8 % (11.5-14.5) H 01/25/17 09:35 Plt Count 134 K/uL (130-400) 01/25/17 09:35 MPV 8.4 fl (7.2-11.7) 01/25/17 09:35 Neut % (Auto) 71.8 % (50.0-75.0) 01/25/17 09:35 Lymph % (Auto) 14.6 % (20.0-40.0) L 01/25/17 09:35 [place] % (Auto) 12.1 % (0.0-10.0) H 01/25/17 09:35 Eos % (Auto) 1.2 % (0.0-4.0) 01/25/17 09:35 Baso % (Auto) 0.3 % (0.0-2.0) 01/25/17 09:35 Neut # 4.1 K/uL (1.8-7.0) 01/25/17 09:35 Lymph # 0.8 K/uL (1.0-4.3) L 01/25/17 09:35 [place] # 0.7 K/uL (0.0-0.8) 01/25/17 09:35 Eos # 0.1 K/uL (0.0-0.7) 01/25/17 09:35 Baso # 0.0 K/uL (0.0-0.2) 01/25/17 09:35 PT 18.8 Seconds (9.8-13.1) H 01/26/17 04:30 INR 1.7 (0.9-1.2) H 01/26/17 04:30 Sodium 137 mmol/l (132-148) 01/26/17 08:24 Potassium 3.2 MMOL/L (3.6-5.0) L 01/26/17 08:24 Chloride 104 mmol/L (98-107) 01/26/17 08:24 Carbon Dioxide 23 mmol/L (22-30) 01/26/17 08:24 Anion Gap 13 (10-20) 01/26/17 08:24 BUN 3 mg/dl (9-20) L 01/26/17 08:24 Creatinine 0.4 mg/dL (0.8-1.5) L 01/26/17 08:24 Est GFR ( Amer) > 60 01/26/17 08:24 Est GFR (Non-Af Amer) > 60 01/26/17 08:24 POC Glucose (mg/dL) 85 mg/dL (65-110) 01/25/17 09:21 Random Glucose 78 mg/dL (75-110) 01/26/17 08:24 Calcium 7.9 mg/dL (8.4-10.2) L 01/26/17 08:24 Phosphorus 3.0 mg/dl (2.5-4.5) 01/26/17 08:24 Magnesium 1.4 MG/DL (1.6-2.3) L 01/26/17 08:24 Total Bilirubin 7.3 mg/dl (0.2-1.3) H 01/25/17 09:35 AST 187 U/L (17-59) H D 01/25/17 09:35 ALT 67 U/L (21-72) 01/25/17 09:35 Alkaline Phosphatase 605 U/L (38-126) H 01/25/17 09:35 Total Protein 7.0 G/DL (6.3-8.2) 01/25/17 09:35 Albumin 2.8 g/dL (3.5-5.0) L 01/25/17 09:35 Globulin 4.2 gm/dL (2.2-3.9) H 01/25/17 09:35 Albumin/Globulin Ratio 0.7 (1.0-2.1) L 01/25/17 09:35 Lipase 201 U/L (23-300) 01/25/17 09:35 Urine Color Jackie (YELLOW) 01/25/17 12:27 Urine Clarity Slighty-cloudy (Clear) 01/25/17 12:27 Urine pH 7.0 (5.0-8.0) 01/25/17 12:27 Ur Specific [place] 1.038 (1.003-1.030) H 01/25/17 12:27 Urine Protein Negative mg/dL (NEGATIVE) 01/25/17 12:27 Urine Glucose (UA) Neg mg/dL (Normal) 01/25/17 12:27 Urine Ketones Trace mg/dL (NEGATIVE) 01/25/17 12:27 Urine Blood Negative (NEGATIVE) 01/25/17 12:27 Urine Nitrate Negative (NEGATIVE) 01/25/17 12:27 Urine Bilirubin Small (NEGATIVE) 01/25/17 12:27 Urine Urobilinogen 4.0 mg/dL (0.2-1.0) 01/25/17 12:27 Ur Leukocyte Esterase Neg [place]/uL (Negative) 01/25/17 12:27 Amorphous Sediment Rare /ul (<OCC) H 01/25/17 12:27 - Hospital Course Hospital Course: 36 y/o gent with known History of Cholangiocarcinoma, metastatic to the liver, bones and lungs , Hx of Surgery, Chemotherapy , came for intractabl abd pain. Pt was recently d/c home on pain meds however , he was not able to buy all the pain meds he was prescribed as he is uninsured. Also complains of chest pain. CT of the chest done showed worsening Pleural effusion. Patient was admitted for Pain mgt- started on IV Dilaudid and PO Oxycodone. Potassium was noted to be 2.8 and was replaced. PT/INR was noted to be prolonged so pt was transfused 1 unit FFP. IR was consulted and pt underwent Right Thoracentesis - 1.6 liters of jackie colored effusion was obtained. Post Thoracentesis CXR : no PTX. Pain better controlled. K level improved. Pt d/c home to up anam with his ONcologist at [facility] for further treatment. Cont PO Oxycontin and PO Dilaudid. Cont PO KCl. Discharge Exam - Head Exam Head Exam: ATRAUMATIC, NORMAL INSPECTION, NORMOCEPHALIC - Eye Exam Eye Exam: EOMI, Normal appearance, PERRL Pupil Exam: NORMAL ACCOMODATION, PERRL - ENT Exam ENT Exam: Mucous Membranes Moist, Normal External Ear Exam - Neck Exam Neck exam: Full Rom - Respiratory Exam Respiratory Exam: Rhonchi, NORMAL BREATHING PATTERN. absent: Respiratory Distress - Cardiovascular Exam Cardiovascular Exam: REGULAR RHYTHM, +S1, +S2 - GI/Abdominal Exam GI & Abdominal Exam: Distended, Tenderness Additional comments: Cook catheter RUQ ( for drainage of ascites) - Extremities Exam Extremities exam: normal capillary refill, pedal pulses present - Back Exam Back exam: absent: CVA tenderness (L), CVA tenderness (R) - Neurological Exam Neurological exam: Alert, CN II-XII Intact, Oriented x3, Reflexes Normal - Psychiatric Exam Psychiatric exam: Normal Affect, Normal Mood - Skin Skin Exam: Dry, Normal Color, Warm Discharge Plan - Follow Up Plan Condition: IMPROVED Disposition: HOME/ ROUTINE Instructions: Acute Abdominal Pain (DC) Additional Instructions: ff up [facility] Oncology anam for further treatment
[2017-01-26 16:24] VITALS: BP 102/64; PULSE 100; RESP 20; TEMP 98.1; O2SAT 98
== END 2017-01-26 19:00 | disposition home or self-care (01) ==
LOC: H.ER 08:34 → H.ERHOLD 13:22 → H.TEL 16:58
PROVIDERS: ADMIT Internal Medicine; ATTEND Internal Medicine
DX: J91.0 Malignant pleural effusion (principal); C22.1 Intrahepatic bile duct carcinoma; C78.7 Secondary malignant neoplasm of liver and intrahepatic bile duct; C79.51 Secondary malignant neoplasm of bone; D64.9 Anemia, unspecified; E87.6 Hypokalemia; G89.3 Neoplasm related pain (acute) (chronic); J98.11 Atelectasis; Z79.899 Other long term (current) drug therapy; Z87.891 Personal history of nicotine dependence; Z90.49 Acquired absence of other specified parts of digestive tract; Z92.21 Personal history of antineoplastic chemotherapy; Z92.3 Personal history of irradiation; Z87.01 Personal history of pneumonia (recurrent); C78.00 Secondary malignant neoplasm of unspecified lung
CPT/HCPCS: 32555; 36415; 36430; 71010; 71275; 80048; 80053; 81003; 82948; 83690; 83735; 84100; 85025; 85610; 96374; 99284; C1729; G0378; J1170; J3430; J7040; P9017; Q9967